=== PATIENT | female | born 1935 | race Caucasian/White ===

== ENCOUNTER → 2021-10-11 | Outpatient (CLI) | payer BC, SELFPAY ==
[2021-10-11 10:45] LABS: Mucous, Urine 0 SEEN /hpf (<or=2+); Red Blood Cells-Urine 0 SEEN /hpf (0-5)
[2021-10-11 12:33] LABS: Absolute Lymphocyte Count 1.34 X10^3/uL (0.83-4.51); Absolute Neutrophil Count 3.8 X10^3/uL (2.0-7.7); Basophil# 0.02 X10^3/uL; Basophil% 0.3 % (0-1); Eosinophil# 0.12 X10^3/uL; Hematocrit 38.1 % (37-47); Hemoglobin 12.5 g/dL (12.0-15.0); Lymphocyte # 1.34 X10^3/ul (0.83-4.51); Lymphocyte % 22.7 % (19-41); Mean Corp Hgb Conc 32.8 g/dL (32-36); Mean Corpuscular Hgb 29.3 pg (27.0-32.0); Mean Corpuscular Volume 89.2 fL (81-99); Mean Platelet Vol. 10.2 fl (6.2-12.0); Monocyte# 0.57 X10^3/uL; Monocyte% 9.6 % (0-10); NRBC Flagged by Analyzer 0 % (0-5); Neutrophil # 3.83 X10^3/uL (2.7-7.7); Neutrophil % 64.9 % (47-70); Platelet Count 252 K/mm3 (150-450); RBC Distribution Width CV 14.2 % (11.6-14.6); RBC Distribution Width SD 45.5 fl (35.1-43.9); Red Blood Count 4.27 M/mm3 (4.2-5.4); White Blood Count 5.9 K/mm3 (4.4-11.0)
[2021-10-11 12:34] LABS: Color, Urine Yellow (Yellow); Glucose, Dipstick Normal (Normal); Ketone-Dipstick Negative (Negative); Leukocyte Esterase-Dipstick 25 /ul (Negative); Nitrite-Dipstick Negative (Negative); Occult Blood-Urine Negative /ul (Negative); Protein-Dipstick Negative (Negative); Specific Gravity, Urine 1.015 (1.002-1.030); Urine Bilirubin Dipstick Negative (Negative); Urine Clarity Clear (Clear); Urine Urobilinogen Normal (Normal)
[2021-10-11 12:41] LABS: Bacteria 1+ /hpf (None Seen); Squamous Epithelial Cells - UA 5-10 SEEN /hpf (5-10)
[2021-10-11 12:42] LABS: White Blood Cells 0-5 SEEN /hpf (0-5)
[2021-10-11 13:13] LABS: AST(SGOT) 22 U/L (15-37); Alanine Aminotransfer ALT/SGPT 25 U/L (13-56); Albumin, Serum 3.8 g/dL (3.2-5.0); Alkaline Phosphatase 103 U/L (45-117); Anion Gap 5 (5-15); BUN 22 mg/dL (7-18); BUN/Creat Ratio 28.2 RATIO (10-20); CPK Total, Creatine Kinase 297 U/L (26-192); Calcium,Total 9.5 mg/dL (8.5-10.1); Chloride 106 mmol/L (98-107); Creatinine, Serum 0.78 mg/dL (0.55-1.02); EST Glomerular Filtration Rate 75 mL/min (>60); Est Glom Filt Rate - Afr Amer 90 mL/min (>60); Ferritin 110 ng/mL (8-252); Globulin 3.7 g/dL (2.2-4.2); Glucose 96 mg/dL (74-106); Magnesium 2.2 mg/dL (1.6-2.6); Potassium 4.6 mmol/L (3.5-5.1); Protein, Total 7.5 g/dL (6.4-8.2); Sodium Level 140 mmol/L (136-145); Thyroid Stim Hormone (TSH) 1.98 uIU/mL (0.358-3.74)
[2021-10-12 14:51] LABS: ANTINUCLEAR ANTIBODIES DIRECT Positive (Negative)
[2021-10-14 14:11] LABS: Anti-Centromere B Ab <0.2 AI (0.0-0.9); Anti-Chromatin <0.2 AI (0.0-0.9); Anti-Jo <0.2 AI (0.0-0.9); Anti-Scleroderma-70 AB >8.0 AI (0.0-0.9); RNP Ab <0.2 AI (0.0-0.9); SJOGREN'S Anti-SS-A test < 0.2 AI (0.0-0.9); SJOGREN'S Anti-SS-B test < 0.2 AI (0.0-0.9); Smith Ab <0.2 AI (0.0-0.9)
[2021-10-14 15:26] LABS: Anti-dsDNA Ab <1 IU/mL (0-9)
== END | disposition home or self-care (01) ==
LOC: MFPLAB 10:42
PROVIDERS: Visit Provider Family Medicine
DX: M34.9 Systemic sclerosis, unspecified (principal); R25.2 Cramp and spasm
CPT/HCPCS: 36415; 80053; 81001; 82550; 82728; 83735; 84443; 85025; 86038; 86225; 86235

== ENCOUNTER → 2021-11-04 | Outpatient (CLI) | payer MEDICARE, SELFPAY ==
--- NOTE | 2021-11-05 08:15 | PFT ---
INTRODUCTION: The patient is an 86-year-old female that presents for pulmonary function studies secondary to a diagnosis of shortness of breath. Respiratory therapy reported good patient effort. Bronchodilators were used during testing. INTERPRETATION: Forced expiration spirometry demonstrates the presence of a mild large airways obstructive ventilatory defect. There was a significant response to aerosolized bronchodilators. Spirograms are of good quality but do not plateau indicating slow emptying of the lungs. Body plethysmography was performed and reveals lung volumes to be within normal limits. Diffusing capacity by single breath CO is also within normal limits. IMPRESSION: Partially reversible mild large airways obstructive ventilatory defect with preserved lung volumes and diffusing capacity.
== END | disposition home or self-care (01) ==
PROVIDERS: PCP Family Medicine; Referring Provider Family Medicine; Visit Provider Family Medicine
DX: R06.02 Shortness of breath (principal)
CPT/HCPCS: 94060; 94726; 94729

== ENCOUNTER → 2021-11-10 | Outpatient (CLI) | payer MEDICARE, SELFPAY ==
--- NOTE | 2021-11-10 13:43 | ART_ITS ---
Reason For Study: Decreased pedal pulses Procedure A bilateral lower extremity continuous wave Doppler with analog waveform analysis,segmental pressures,and ankle brachial indexes with exercise. Left Segmental Pressures Left brachial= 136mmHg. Left posterior tibial artery = 157mmHg. Left dorsalis pedis artery = 163mmHg. The left dorsalis pedis waveforms are triphasic. The left posterior tibial artery waveforms are triphasic. Right Segmental Pressures Right brachial= 142mmHg. Right posterior tibial artery = 149mmHg. Right dorsalis pedis artery = 145mmHg. The right dorsalis pedis waveforms are triphasic. The right posterior tibial artery waveforms are triphasic. Indices The right ankle brachial index by the dorsalis pedis is 1.02. The right ankle brachial index by the posterior tibial artery is 1.05. The left ankle brachial index by the dorsalis pedis is 1.15. The left ankle brachial index by the posterior tibial artery is 1.11. VL/Lower Ext Art Exam w/ Exercise Interpretation Summary Triphasic Doppler waveforms are noted at ankle level bilaterally. Pulse-volume recordings appear satisfactory at all levels bilaterally. Resting ankle-brachial indices are norm al bilaterally. The patient ambulated on a treadmill for 5 minutes at 1.8 MPH and a 5% grade, follo wing which ankle pressures augmented bilaterally, a normal physiological response. There is no evidence of significant arterial occlusive disease in the lower ext remities bilaterally. Ordering Physician: Julian Ng Referring Physician: Julian Ng Performed By: Debbie Kelly RVT
== END | disposition home or self-care (01) ==
PROVIDERS: PCP Family Medicine; Referring Provider Family Medicine; Visit Provider Family Medicine
DX: R09.89 Other specified symptoms and signs involving the circulatory and respiratory systems (principal)
CPT/HCPCS: 93924

== ENCOUNTER → 2021-12-09 | Outpatient (CLI) | payer MEDICARE, SELFPAY ==
--- NOTE | 2021-12-09 11:25 | RAD_ITS ---
EXAM: XR LUMBOSACRAL SPINE, 2 OR 3 VIEWS CLINICAL INDICATION: PSEUDOCLAUDICATION TECHNIQUE: Frontal and lateral views of the lumbar spine and sacrum. This report was created using [employer] report ALOSKO technology. COMPARISON: None. FINDINGS: VERTEBRAE: There is minimal curvature of the lumbar spine. Preserved vertebral body height. No fracture. No spondylolisthesis. No significant facet arthropathy. DISC SPACES: There is disc space narrowing at L2-3 and L3-4 as well as L5-S1. GASTROINTESTINAL TRACT: Unremarkable as visualized. Included bowel gas pattern is non-obstructive. RAD/Lumbar Spine 2 or 3 Views IMPRESSION: Degenerative changes with mild disc space narrowing. There are no acute osseous abnormalities. Electronically Signed: Damion Meza MD at 2:56 EDT ,
== END | disposition home or self-care (01) ==
LOC: MTRAD 11:20
PROVIDERS: PCP Family Medicine; Referring Provider Family Medicine; Visit Provider Family Medicine
DX: M48.062 Spinal stenosis, lumbar region with neurogenic claudication (principal)
CPT/HCPCS: 72100

== ENCOUNTER → 2022-01-25 | Outpatient (CLI) | payer MEDICARE, SELFPAY ==
--- NOTE | 2022-01-25 16:00 | RAD_ITS ---
STUDY: LEFT ELBOW X-RAY SERIES OF 1606 HOURS ON 01/25/2022 REASON FOR EXAM: 86-year-old female with pain and swelling of the left elbow after trauma. TECHNIQUE: 3 view(s) of the elbow. COMPARISON: None. FINDINGS: There are findings of a radial head fracture. There is no evidence of other fractures or dislocations of the elbow joint. There is mild demineralization. There is a mild elbow joint effusion. Otherwise, the soft tissues are normal. RAD/Elbow min 3 Views IMPRESSION: 1. Left radial head fracture. 2. No other fractures or dislocations of the left elbow. 3. Mild demineralization. 4. Mild left elbow joint effusion. Electronically Signed: Bala Jeffrey MD at 2:00 EDT ,
== END | disposition home or self-care (01) ==
LOC: MTRAD 15:59
PROVIDERS: PCP Family Medicine; Referring Provider Family Medicine; Visit Provider Family Medicine
DX: M25.522 Pain in left elbow (principal)
CPT/HCPCS: 73080

== ENCOUNTER 2022-02-09 12:00 | Outpatient (RCR) | payer MEDICARE, SELFPAY ==
--- NOTE | 2021-12-31 15:40 | HP.PTEVAL_ITS ---
Patient's Visit Information DES DUFFY is a 86 year old F referred to Physical Therapy by Dr. Kolton Seals DPM with a diagnosis of GAIT ABNORMALITY. Date of Evaluation: 12/31/21 Physical Therapist: Mary Corrales PT, Cert MDT - Visit Plan Frequency: 2-3x /Week Duration: 4-6 Weeks Plan: GAIT AND BALANCE TRAINING ON LEVEL SURFACES AND UP AND DOWN STEPS. CORE STRENGTH AND STABILITY TRAINING WITH NEUTRAL SPINE. TIANA LE ROM, STRETCHING AND STRENGTHENING. - Subjective Work/Leisure: RETIRED. PATIENT REPORTS SHE HAS A DOG AND SHE DOES A LOT OF WALKING (UP TO 8,000 STEPS PER DAY). Present symptoms: RIGHT FOOT PAIN. SOMETIMES FEELS OFF BALANCE. DAILY LBP. TIANA LE THIGH AND LEG PAIN. PATIENT REPORTS THAT WHEN SHE IS ON AN INCLINE THE PAIN GOES UP HER LEGS FROM HER ANKLES. SOB. PATIENT REPORTS HER DOCTORS ARE AWARE OF ALL OF THESE SX'S. NEW ONSET OF MUSCLE CRAMPS AT NIGHT BUT BETTER WITH RECOMMENDATIONS FROM DR. RENDON. Present since: FOOT PAIN STARTED A COUPLE YEARS AGO AND TIANA LE AND LBP STARTED MORE RECENTLY. Pain Scale: WORST 7/10, LEAST 0/10. Currently: 3/10 LBP CENTRAL. Commenced as a result of: NO APPARENT REASON OTHER THAN CORNS ON FOOT. Worse: GETTING OUT OF BED AT NIGHT TO GO TO THE BATHROOM - NOT THE ACT OF GETTING OUT BUT ONCE I STAND UP. SOMETIMES SITTING, WALKING UP AN INCLINE. Better: NUSTEP - A MILE IN ABOUT 20 MIN ON LEVEL 4. DKTC. Disturbed sleep: NO. Previous history/Previous treatment: NO BACK SURGERY. NO DERRICK'S. NO PT FOR BACK. NO CHIRO. Coughing/sneezing/straining: NEGATIVE. Gait: PATIENT REPORTS SHE LIMPS ON HER RIGHT LE AND SWINGS HER LEG OUT TO THE SIDE WALKING. W ANTS TO LEARN HOW TO WALK BETTER. Bowel or Bladder Dysfunction: URINARY LEAKING INTERMITTENT. Accidents: HAS NOT FALLEN SINCE KNEE SURGERY OCTOBER 2020. TERRIFIED OF FALLING BECAUSE HAD MANY FALLS BEFORE KNEE SURGERY. Unexplained weight loss: NO. Imaging: RECENT LUMBAR IMAGING. NOVEMBER 2021. IMPRESSION: . Degenerative changes with mild disc space narrowing. There are no acute. osseous abnormalities. . PMH/Recent major surgery: ACL REPAIR AND MENISCUS SX OCTOBER 2020. RECENT PULMONARY TESTING RECENTLY THAT WAS NORMAL FAR PATIENT IS AWARE. HAS AN INHALER NOW FOR ASTHMA BUT PATIENT DOES NOT FEEL THIS IS HELPING HER SOB AND LEG PAIN. L FOOT SX'S. X 2 FOR SEVERE HAMMER TOES. TIANA SHLD RCR'S. R HIP SXS. SCLERADERMA. OTHER: REPORTS SURGERY HAS BEEN RECOMMENDED ON HER RIGHT FOOT BUT SHE IS RELUCTANT. PARTNER RECENTLY AND PATIENT HAS LOST WEIGHT DUE TO THIS. RECENTLY MOVED HERE IN AUGUST 2021. - Objective Sitting/Standing Posture: POOR. FH. RSH'S. REDUCED LORDOSIS. Active Correction of posture: NE. Other Observations: THIS PATIENT AMBULATES INDEP'LY INTO PT WITHOUT ANY ASSISTIVE DEVICES LIMPING ON HER RIGHT LE AND CIRCUMDUCTING HER RIGHT LE. SHE WALKS WITH DECREASED CADANCE AND DECREASED TIANA STRIDE LENGTH. Sensory deficit: TIANA LE LIGHT TOUCH SENSATION INTACT AND SYMMETRICAL. ROM deficit: TIGHT TIANA LE HS'S AND GASTROC SOLEUS COMPLEX'S. Motor deficit: TIANA LE'S GROSSLY 5/5 WITH MMT'ING EXCEPT HIPS 4/5. Dural Signs: NEGATIVE TIANA LE'S. Lumbar mvmt loss: flex - NIL. ext - MAKSIM. R SG - MOD. L SG - MOD. Core strength: POOR. Palpation: NO ACUTE LOW BACK OR HIP TENDERNESS. OTHER: PATIENT UNABLE TO SLS MORE THAN A SECOND OR TWO ON THE RIGHT LE WITHOUT UE ASSIST AND ABOUT 5 SEC ON LLE. - Balance/Special Test Scores Lower Extremity Functional Score: 54 TUG Test Time Seconds: 12.50 30 Second Chair Rise Test Seconds: 9 - Goals Goal 1:: DECREASE C/O LOW BACK AND TIANA LE PAIN Goal Time Frame: 4-6 Weeks Goal 2:: PATIENT WILL COMPLETE TUG IN < 10 SECS TO DEMONSTRATE IMPROVED GAIT STABILITY Goal Time Frame: 4-6 Weeks Goal 3:: PATIENT WILL COMPLETE 11 STANDS IN 30 SECS TO DEMONSTRATE IMPROVED FUNCTIONAL STRENGTH AND TO BE IN NORMAL RANGE FOR HER AGE Goal Time Frame: 4-6 Weeks Goal 4:: PATIENT WILL BE INDEP WITH A HEP FOR CONTINUED IMPROVEMENT ONCE FORMAL PHYSICAL THERAPY CONCLUDES. - Anticipated Interventions Patient/Client Instruction: Educate patient on: Condition, Plan of Care, Risk Factors For the Purpose of:: To improve self management Therapeutic Exercise to Include: Strength training, Balance training, Body mechanics, Postural training, Flexibilty training, Gait and locomotor training, Neuromotor development For the Purpose of:: To decrease pain, To increase ROM, To improve muscle performance and motor function, To improve ability of physical actions for home/community/work/leisure, To improve gait and locomotor functions Thank you for the opportunity to evaluate your patient. For Medicare and Medicare HMO plans, please review the plan of care and approve it. It will need to be FAXED BACK to us at [phone] for Medicare purposes. For Medicare only, by signing this I certify the plan of care. Please let me know if there are questions or concerns regarding this plan of care. Physician Signature: Date:
--- NOTE | 2022-02-14 12:59 | HP.PTDCSUM ---
It has been my pleasure to treat DES DUFFY referred by Dr. Kolton Seals DPM, with the diagnosis of GAIT ABNORMALITY for a total of 9 visit(s). Discharge Date: 02/09/22 Please see the following information for a summary of their discharge status. Subjective: Pt. reports overall doing well. She still has some pain with walking up/down hills, but is overall doing well. She is still has some soreness at her L rib region after falling. No other issues noted. Left shoulder Pain Intensity (Out of 10): 0 L rib region Pain Intensity (Out of 10): 2 % Improvement: 90 Objective/Function: 30 set to stand test: 15 reps no hands. TU.56sec no AD. 6 MWT: 1116 feet- no issues. walking on Tmill with 6% incline: Pt. fatigue, dyspnea noted. But all vitals were fine. Pt. ambulated for 4 minutes. Pt. is overall doing well. And wishes to be DC from Pt at this point in time. Goal 1:: DECREASE C/O LOW BACK AND TIANA LE PAIN Goal Progress: Goal Met Goal 2:: PATIENT WILL COMPLETE TUG IN < 10 SECS TO DEMONSTRATE IMPROVED GAIT STABILITY Goal Progress: Goal Met Goal 3:: PATIENT WILL COMPLETE 11 STANDS IN 30 SECS TO DEMONSTRATE IMPROVED FUNCTIONAL STRENGTH AND TO BE IN NORMAL RANGE FOR HER AGE Goal Progress: Goal Met Goal 4:: PATIENT WILL BE INDEP WITH A HEP FOR CONTINUED IMPROVEMENT ONCE FORMAL PHYSICAL THERAPY CONCLUDES. Goal Progress: Goal Met Plan: Pt. to be DC from PT at this point in time. Discharge Comments: pt. did well with PT . She was treated with endurance exercise and balance. I urged her to continue with a progressive walking program and nustep program at home. Pt. is oveall doing well and will be DC at this point in time. If there are questions or concerns regarding this patient's physical therapy, please feel free to call me at [phone]. Thank you for the referral of this patient. Sincerely, Gonsalo Reyes, TANIYAT Balance/Gait/Functional tests - Balance/Special Test Scores Lower Extremity Functional Score: 55 TUG Test Time Seconds: 12.50 Tug Test: <10 sec.=free mobile 30 Second Chair Rise Test Seconds: 15
== END 2022-02-09 19:00 | disposition home or self-care (01) ==
LOC: PT 12:00
PROVIDERS: PCP Family Medicine; Referring Provider Podiatrist; Visit Provider Podiatrist
DX: R26.9 Unspecified abnormalities of gait and mobility (principal)
CPT/HCPCS: 97110; 97162; 97164

== ENCOUNTER → 2022-06-02 | Outpatient (CLI) | payer MEDICARE, SELFPAY ==
--- NOTE | 2022-06-02 11:05 | BD_ITS ---
STUDY: DUAL ENERGY X-RAY ABSORPTIOMETRY / DXA REASON FOR EXAM: Female, 87 years old. M85.89 TECHNIQUE: Bone Mineral Density (BMD) measurements of lumbar spine and left hip were obtained. COMPARISON: None. FINDINGS: Lumbar Spine (L1-L4): g/cm2 (0.778) / T-score (-2.4) / Z-score (0.4) Findings are suggestive of osteopenia with a high fracture risk. Left Femur Total: g/cm2 (0.571) / T-score (-3.0) / Z-score (-0.7) Left Femoral Neck: g/cm2 (0.526) / T-score (-2.9) / Z-score (-0.4) BD/Dexa Bone Density Study IMPRESSION: The patient is considered osteoporotic as outlined below according to World Miles Organization (WHO) criteria with a high fracture risk. Reference Information: The T-score is the number of standard deviations above or below the standard which is normal for young adults at their peak bone mineral density. The World Health Organization (WHO) interprets the T-scores as follows: Above -1 Normal bone density Between -1 and -2.5 Osteopenia Equal to / or below -2.5 Osteoporosis As a practical clinical guideline, osteopenia may be graded as follows: Mild -1 through -1.5 Moderate -1.6 through -2.0 Severe -2.1 through -2.4 The Z-score is the number of standard deviations above or below age-matched controls. A Z-score of less than -1.5 would be considered abnormal. References: 1. NIH Osteoporosis and Related Bone Diseases www osteo.org 2. International Society for Clinical Densitometry www iscd.org 3. National Osteoporosis Foundation www nof.org Electronically Signed: Rah Cisse MD at 14:34 EST ,
== END | disposition home or self-care (01) ==
LOC: OPBD 10:58
PROVIDERS: PCP Family Medicine; Visit Provider Family Medicine
DX: M81.0 Age-related osteoporosis without current pathological fracture (principal); M85.80 Other specified disorders of bone density and structure, unspecified site
CPT/HCPCS: 77080

== ENCOUNTER → 2022-06-07 | Outpatient (CLI) | payer MEDICARE, SELFPAY ==
[2022-06-07 16:11] LABS: ALB/GLOB Ratio 1.1 RATIO (0.9-2.4); AST(SGOT) 19 U/L (15-37); Alanine Aminotransfer ALT/SGPT 24 U/L (13-56); Albumin, Serum 3.8 g/dL (3.2-5.0); Alkaline Phosphatase 69 U/L (45-117); Anion Gap 8 (5-15); BUN 25 mg/dL (7-18); BUN/Creat Ratio 33.5 RATIO (10-20); Calcium,Total 9.9 mg/dL (8.5-10.1); Chloride 104 mmol/L (98-107); Creatinine, Serum 0.75 mg/dL (0.55-1.02); EST Glomerular Filtration Rate 78 mL/min (>60); Est Glom Filt Rate - Afr Amer 95 mL/min (>60); Globulin 3.4 g/dL (2.2-4.2); Glucose 88 mg/dL (74-106); Potassium 4.7 mmol/L (3.5-5.1); Protein, Total 7.2 g/dL (6.4-8.2); Sodium Level 142 mmol/L (136-145)
[2022-06-07 16:50] LABS: Vitamin D,25 Hydroxy 37.8 ng/mL
== END | disposition home or self-care (01) ==
PROVIDERS: PCP Family Medicine; Referring Provider Family Medicine; Visit Provider Family Medicine
DX: M81.0 Age-related osteoporosis without current pathological fracture (principal)
CPT/HCPCS: 36415; 80053; 82306

== ENCOUNTER → 2022-10-07 | Outpatient (CLI) | payer MEDICARE, SELFPAY | END | disposition home or self-care (01) | LOC: LABSPEC 12:24 | PROVIDERS: PCP Family Medicine; Referring Provider Family Medicine; Visit Provider Family Medicine | DX: N39.0 Urinary tract infection, site not specified (principal) | CPT/HCPCS: 87077; 87086; 87088; 87186 ==

== ENCOUNTER → 2022-11-15 | Outpatient (CLI) | payer MEDICARE, SELFPAY ==
[2022-11-15 12:48] LABS: Absolute Lymphocyte Count 1.76 X10^3/uL (0.83-4.51); Absolute Neutrophil Count 3.9 X10^3/uL (2.0-7.7); Basophil# 0.03 X10^3/uL; Basophil% 0.5 % (0-1); Eosinophil# 0.13 X10^3/uL; Hematocrit 40.1 % (37-47); Hemoglobin 12.6 g/dL (12.0-15.0); Lymphocyte # 1.76 X10^3/ul (0.83-4.51); Mean Corp Hgb Conc 31.4 g/dL (32-36); Mean Corpuscular Hgb 28.6 pg (27.0-32.0); Mean Corpuscular Volume 91.1 fL (81-99); Mean Platelet Vol. 10.4 fl (6.2-12.0); Monocyte# 0.69 X10^3/uL; Monocyte% 10.6 % (0-10); NRBC Flagged by Analyzer 0 % (0-5); Neutrophil % 59.7 % (47-70); Platelet Count 260 K/mm3 (150-450); RBC Distribution Width CV 13.9 % (11.6-14.6); RBC Distribution Width SD 46.4 fl (35.1-43.9); White Blood Count 6.5 K/mm3 (4.4-11.0)
[2022-11-15 13:39] LABS: AST(SGOT) 25 U/L (15-37); Alanine Aminotransfer ALT/SGPT 25 U/L (13-56); Albumin, Serum 3.8 g/dL (3.2-5.0); Alkaline Phosphatase 50 U/L (45-117); Anion Gap 6 (5-15); BUN 22 mg/dL (7-18); BUN/Creat Ratio 24.7 RATIO (10-20); Calcium,Total 9.2 mg/dL (8.5-10.1); Chloride 107 mmol/L (98-107); Creatinine, Serum 0.89 mg/dL (0.55-1.02); EST Glomerular Filtration Rate 64 mL/min (>60); Est Glom Filt Rate - Afr Amer 77 mL/min (>60); Globulin 3.7 g/dL (2.2-4.2); Glucose 94 mg/dL (74-106); Potassium 4.5 mmol/L (3.5-5.1); Protein, Total 7.5 g/dL (6.4-8.2); Sodium Level 138 mmol/L (136-145); Thyroid Stim Hormone (TSH) 1.77 uIU/mL (0.358-3.74)
[2022-11-15 13:45] LABS: Vitamin B12 624 pg/mL (211-911); Vitamin D,25 Hydroxy 47.3 ng/mL
== END | disposition home or self-care (01) ==
LOC: MFPLAB 11:13
PROVIDERS: PCP Family Medicine; Visit Provider Family Medicine
DX: M81.0 Age-related osteoporosis without current pathological fracture (principal); R53.83 Other fatigue
CPT/HCPCS: 36415; 80053; 82306; 82607; 84439; 84443; 85025

== ENCOUNTER → 2022-12-14 | Outpatient (CLI) | payer MEDICARE, SELFPAY ==
--- NOTE | 2022-12-14 10:00 | RAD_ITS ---
STUDY: X-RAY - ESOPHAGUS (BARIUM SWALLOW) WITH FLUOROSCOPY REASON FOR EXAM: Female, 87 years old. DYSPHAGIA TECHNIQUE: 18 view(s) of the esophagus were obtained following swallowing of barium. FLUOROSCOPY TIME (if supplied): (31 seconds) minutes/seconds COMPARISON: None. FINDINGS: There is no demonstrated esophageal foreign body. There is no demonstrated stricture or mucosal abnormality. Normal gastroesophageal junction, without a demonstrated hiatal hernia. The patient ingested a 12 mm tablet of barium without any difficulty. There is atherosclerotic calcification of the aortic arch with tortuosity of the descending aorta. Normal visualized pulmonary parenchyma. There are diffuse degenerative changes of the visualized thoracic spine. RAD/Esophagus Dual Contrast IMPRESSION: Normal plain film x-ray examination (barium swallow) of the esophagus. Electronically Signed: Rah Cisse MD at 15:02 EDT ,
== END | disposition home or self-care (01) ==
LOC: RAD 09:50
PROVIDERS: PCP Family Medicine; Referring Provider Internal Medicine Gastroenterology; Visit Provider Internal Medicine Gastroenterology
DX: R13.0 Aphagia (principal); M34.9 Systemic sclerosis, unspecified
CPT/HCPCS: 74221

== ENCOUNTER → 2022-12-16 | Outpatient (CLI) | payer MEDICARE, SELFPAY | END | disposition home or self-care (01) | LOC: LABSPEC 12:17 | PROVIDERS: PCP Family Medicine; Referring Provider Family Medicine; Visit Provider Family Medicine | DX: N39.0 Urinary tract infection, site not specified (principal) | CPT/HCPCS: 87077; 87086; 87088; 87186 ==

== ENCOUNTER → 2023-01-06 | Outpatient (CLI) | payer MEDICARE, SELFPAY ==
--- NOTE | 2023-01-06 12:50 | RAD_ITS ---
STUDY: X-RAY CHEST REASON FOR EXAM: Female, 87 years old. SOB TECHNIQUE: PA and lateral views of the chest. COMPARISON: None. FINDINGS: Lungs are hyperexpanded, with chronic interstitial changes, but no superimposed acute pulmonary process Normal size heart. Normal mediastinum and andie. Normal visualized pulmonary arteries. There is atherosclerotic calcification of the aortic arch with tortuosity. There are diffuse degenerative changes of the visualized thoracic spine. There is degenerative osteoarthritis of the bilateral shoulders. There is no demonstrated abnormality of the visualized soft tissue structures of the upper abdomen. RAD/Chest PA and Lateral IMPRESSION: Hyperexpanded lungs with chronic interstitial changes, no superimposed acute pulmonary process Electronically Signed: Bo Waite MD at 14:27 EDT ,
[2023-01-06 15:18] LABS: Erythrocyte Sedimentation Rate 13 mm/hr (0-30)
[2023-01-06 15:50] LABS: CRP < 2.90 mg/L (0.0-3.0)
[2023-01-09 13:07] LABS: Anti-Scleroderma-70 AB >8.0 AI (0.0-0.9)
== END | disposition home or self-care (01) ==
LOC: MTLAB 12:46
PROVIDERS: PCP Family Medicine; Referring Provider Internal Medicine Pulmonary Disease; Visit Provider Internal Medicine Pulmonary Disease
DX: R06.02 Shortness of breath (principal)
CPT/HCPCS: 36415; 71046; 85652; 86140; 86235

== ENCOUNTER → 2023-02-16 | Outpatient (CLI) | payer MEDICARE, SELFPAY ==
--- NOTE | 2023-02-16 09:55 | ART_ITS ---
Reason For Study: LEG PAIN Procedure A bilateral lower extremity continuous wave Doppler with analog waveform analysis,segmental pressures,and ankle brachial indexes without exercise. Left Segmental Pressures Left brachial= 109mmHg. Left posterior tibial artery = 154mmHg. Left dorsalis pedis artery = 139mmHg. Left digit = 104 mmHg. The left posterior tibial artery waveforms are triphasic. The left dorsalis pedis waveforms are triphasic. Right Segmental Pressures Right brachial= 113mmHg. Right posterior tibial artery = 140mmHg. Right dorsalis pedis artery = 138mmHg. Right digit = 75 mmHg. The right posterior tibial artery waveforms are triphasic. The right dorsalis pedis waveforms are triphasic. Indices The right ankle brachial index by the posterior tibial artery is 1.24. The right ankle brachial index by the dorsalis pedis is 1.22. The right digital-brachial index is 0.66. The left ankle brachial index by the posterior tibial artery is 1.36. The left ankle brachial index by the dorsalis pedis is 1.23. The left digital-brachial index is 0.92. VL/Lower Ext Art Exam w/o Exercis Interpretation Summary Triphasic Doppler waveforms are noted at ankle level bilaterally. Pulse-volume recordings appear diminished at ankle level on the left, and at digital level bilaterally. Restin g ankle-brachial indices are normal bilaterally. The right digital-brachial index is mildly dimi nished. The left digital-brachial index is normal. Arterial flow appears normal at ankle level bilaterally, and at digital level o n the left. There is evidence of mild arterial occlusive disease at digital level on the right. Ordering Physician: Aaron Garcia V Referring Physician: Julian Ng Performed By: Adan Bill RVT
== END | disposition home or self-care (01) ==
LOC: CT 09:51
PROVIDERS: PCP Family Medicine; Referring Provider Internal Medicine Pulmonary Disease; Visit Provider Internal Medicine Pulmonary Disease
DX: R06.02 Shortness of breath (principal); M34.9 Systemic sclerosis, unspecified; I70.213 Atherosclerosis of native arteries of extremities with intermittent claudication, bilateral legs; M79.669 Pain in unspecified lower leg
CPT/HCPCS: 93923

== ENCOUNTER → 2023-02-20 | Outpatient (CLI) | payer MEDICARE, SELFPAY ==
--- NOTE | 2023-02-20 13:57 | ECHOD_ITS ---
Reason For Study: SOB Procedure This was a 2D Doppler, Color Flow transthoracic echocardiogram. Exam performed in department. Left Ventricle Normal LV size. Left ventricular systolic function is normal. The estimated ejection fraction is 65 %. Stage 2 diastolic dysfunction. No regional wall motion abnormalities noted. Right Ventricle Normal RV size. Normal systolic function. Atria Normal left atrium. Normal right atrium. Mitral Valve Normal mitral valve. Tricuspid Valve Normal tricuspid valve. Mild tricuspid valve insufficiency. Pulmonary artery systolic pressure is 44 mmHg. Aortic Valve Normal aortic valve. Trisinus/trileaflet aortic valve. Pulmonic Valve Normal pulmonic valve. Great Vessels Normal aortic root. The pulmonary artery is normal size. Normal inferior vena cava. Pericardium/Pleural No pericardial effusion. MMode/2D Measurements & Calculations LVIDd: 4.1 cm IVSd: 0.88 cm Ao root diam: 2.7 cm LVIDs: 2.8 cm LVPWd: 0.96 cm FS: 32.5 % LAV(MOD-sp4): 23.6 ml LVAd ap4: 22.6 cm2 SV(MOD-sp4): 47.6 ml LVLd ap4: 6.7 cm EDV(MOD-sp4): 64.1 ml EDV(sp4-el): 65.1 ml LVAs ap4: 10.2 cm2 LVLs ap4: 5.3 cm ESV(MOD-sp4): 16.5 ml ESV(sp4-el): 16.7 ml EF(MOD-sp4): 74.3 % EF(sp4-el): 74.4 % SV(sp4-el): 48.4 ml LA A4 area: 10.7 cm2 LA dimension(2D): 3.4 cm RA A4 area: 16.8 cm2 TAPSE: 2.3 cm Time Measurements MV dec time: 0.18 sec Doppler Measurements & Calculations MV E max rajinder: 67.7 cm/sec Lat Peak E' Rajinder: 11.1 cm/sec Med Peak E' Rajinder: 8.2 cm/sec MV A max rajinder: 63.6 cm/sec E/E' lat: 6.1 E/E' med: 8.3 MV E/A: 1.1 MV V2 max: 95.5 cm/sec Ao V2 max: 121.9 cm/sec MV max P.7 mmHg MV dec slope: 376.9 cm/sec2 Ao max P.0 mmHg MV V2 mean: 63.7 cm/sec Ao V2 mean: 91.1 cm/sec MV mean P.8 mmHg Ao mean P.7 mmHg MV V2 VTI: 32.1 cm Ao V2 VTI: 32.7 cm AV (velocity ratio): 0.77 LV V1 max: 99.3 cm/sec PA V2 max: 88.6 cm/sec TR max rajinder: 308.8 cm/sec LV V1 max P.9 mmHg PA V2 mean: 65.1 cm/sec TR max P.2 mmHg LV V1 mean P.3 mmHg LV V1 mean: 71.2 cm/sec LV V1 VTI: 25.3 cm ECHO/Echo Complete Interpretation Summary Normal LV size. Left ventricular systolic function is normal. The estimated ejection fraction is 65 %. Pulmonary artery systolic pressure is 44 mmHg. Stage 2 diastolic dysfunction. Ordering Physician: Julian Ng Referring Physician: Aaron Garcia V Performed By: Saniya Yeboah RCS
--- NOTE | 2023-02-20 14:39 | CT_ITS ---
STUDY: CT CHEST WITHOUT CONTRAST REASON FOR EXAM: Female, 88 years old. SOB RADIATION DOSAGE (If Supplied By Facility): CTDIvol = ( 6.61 ) mGy, DLP = ( 229.54 ) mGycm TECHNIQUE: Transaxial imaging was performed without the administration of intravenous contrast material. Individualized dose optimization techniques were used for this CT. COMPARISON: No relevant priors. FINDINGS: CHEST Fibrocalcific scarring at the lung apices worse on the right side. Mild emphysematous changes. Calcified granulomas in the posterior aspect of the right middle lobe. Calcified granuloma in the left lower lobe. Mild degree of scarring at the lung bases slightly more prominent on the left side. There is no demonstrated pleural abnormality. There are calcifications of the coronary arteries. There are multiple small lymph nodes within the mediastinum, which are normal in size and morphology most compatible with reactive lymph hyperplasia. Calcified bilateral hilar lymph nodes. Normal unenhanced pulmonary arteries. There is atherosclerotic calcification of the aortic arch with tortuosity and elongation of the aortic arch and descending thoracic aorta. There are multi-level degenerative changes of the thoracic spine. Calcified splenic granulomas. CT/Chest without Contrast IMPRESSION: Several calcific scarring in the lung apices worse on the right side. Mild scarring at the lung bases. Mild degree of emphysematous changes. Electronically Signed: Rah Cisse MD at 8:39 EDT ,
== END | disposition home or self-care (01) ==
PROVIDERS: PCP Family Medicine; Referring Provider Internal Medicine Pulmonary Disease; Visit Provider Internal Medicine Pulmonary Disease
DX: R06.02 Shortness of breath (principal)
CPT/HCPCS: 71250; 93306

== ENCOUNTER → 2023-04-11 | Outpatient (CLI) | payer MEDICARE, SELFPAY ==
[2023-04-11 10:44] LABS: Anion Gap 6 (5-15); BUN 24 mg/dL (7-18); BUN/Creat Ratio 29.3 RATIO (10-20); Calcium,Total 9.3 mg/dL (8.5-10.1); Chloride 104 mmol/L (98-107); Creatinine, Serum 0.82 mg/dL (0.55-1.02); EST Glomerular Filtration Rate 70 mL/min (>60); Est Glom Filt Rate - Afr Amer 85 mL/min (>60); Glucose 82 mg/dL (74-106); Potassium 3.7 mmol/L (3.5-5.1); Sodium Level 140 mmol/L (136-145)
== END | disposition home or self-care (01) ==
LOC: MFPLAB 08:59
PROVIDERS: PCP Family Medicine; Visit Provider Family Medicine
DX: I27.20 Pulmonary hypertension, unspecified (principal)
CPT/HCPCS: 36415; 80048

== ENCOUNTER → 2023-06-02 | Outpatient (CLI) | payer MEDICARE, SELFPAY ==
--- OUTSIDE RECORDS SUMMARY | 2023-06-02 12:18 | XMS RPT_ITS | CCD ---
Author Name Unknown Address [address] [place] [address] Organization [facility] Care Team Providers Care Programming Engineer Name Role Phone ANTHONY DECKER Attending Unavailable ANTHONY DECKER Admitting Unavailable Allergies Allergy Classification Reported Allergen(s) Allergy Type Date of Onset Reaction(s) Facility (1 source) Chlorpheniramine / Pseudoephedrine; Translations: [ALLER-CHLOR DECONGESTANT] Drug Allergy 05-25-19 [facility] (1 source) Sulfonamides (Antibiotic); Translations: [SULFA (SULFONAMIDE ANTIBIOTICS)] Propensity to adverse reactions to drug (disorder) 05-25-19 [facility] Repository Problems Problem Classification Problem Date Documented Da te Episodic/Chronic Pulmonary heart disease (1 source) Pulmonary hypertension, unspecified; Translations: [Pulmonary HTN (HCC)] Onset: 05-25-2023 Chronic Results Test Name Value Interpretation Reference Range Facil ity Encounters Encounter Date Encounter Type Care Provider Facility Start: 05-25-2023 End: 05-25-2023 ambulatory ANTHONY DECKER Facility:[facility] Payers Date Payer Category Payer Medicare [id number] Summary Purpose Family History No Family History Records Found Advance Directives No Advanced Directives Records Found Additional Source Comments INFORMATION SOURCE (unrecogn ized section and content) FOR RECORDS PERTAINING TO PATIENTS WHO ARE OR HAVE BEEN ENROLLED IN A CHEMICAL DEPENDENCY/SUBSTANCEABUSE PROGRAM, SOME INFORMATION MAY BE OMITTED. This clinical summary was aggregated from multiple sources. Caution should be exercised in using it in the provision of clinical care. This summary normalizes information from multiple sources, and as a consequence, information in this document may materially change the coding, format and clinical context of patient data. In addition, data may be omitted in some cases. CLINICAL DECISIONS SHOULD BE BASED ON THE PRIMARY CLINICAL RECORDS. [employer] provides no warranty or guarantee of the accuracy or completeness of information in this document.
[2023-06-02 15:36] LABS: Absolute Lymphocyte Count 1.84 X10^3/uL (0.83-4.51); Basophil# 0.03 X10^3/uL; Basophil% 0.5 % (0-1); Eosinophil# 0.08 X10^3/uL; Eosinophils% 1.2 % (0-5); Hematocrit 40.9 % (37-47); Hemoglobin 12.6 g/dL (12.0-15.0); Lymphocyte # 1.84 X10^3/ul (0.83-4.51); Lymphocyte % 27.7 % (19-41); Mean Corp Hgb Conc 30.8 g/dL (32-36); Mean Corpuscular Hgb 28.6 pg (27.0-32.0); Mean Corpuscular Volume 92.7 fL (81-99); Monocyte# 0.68 X10^3/uL; Monocyte% 10.2 % (0-10); NRBC Flagged by Analyzer 0 % (0-5); Neutrophil # 3.99 X10^3/uL (2.7-7.7); Neutrophil % 60.1 % (47-70); Platelet Count 304 K/mm3 (150-450); RBC Distribution Width SD 51.1 fl (35.1-43.9); Red Blood Count 4.41 M/mm3 (4.2-5.4); White Blood Count 6.6 K/mm3 (4.4-11.0)
[2023-06-02 16:00] LABS: Vitamin D,25 Hydroxy 47.5 ng/mL
[2023-06-02 16:22] LABS: ALB/GLOB Ratio 1.1 RATIO (0.9-2.4); AST(SGOT) 26 U/L (15-37); Alanine Aminotransfer ALT/SGPT 25 U/L (13-56); Albumin, Serum 4.2 g/dL (3.2-5.0); Alkaline Phosphatase 57 U/L (45-117); Anion Gap 7 (5-15); BUN 22 mg/dL (7-18); BUN/Creat Ratio 26.1 RATIO (10-20); Chloride 102 mmol/L (98-107); Creatinine, Serum 0.84 mg/dL (0.55-1.02); EST Glomerular Filtration Rate 68 mL/min (>60); Est Glom Filt Rate - Afr Amer 82 mL/min (>60); Globulin 3.7 g/dL (2.2-4.2); Glucose 88 mg/dL (74-106); Potassium 4.3 mmol/L (3.5-5.1); Protein, Total 7.9 g/dL (6.4-8.2); Sodium Level 138 mmol/L (136-145)
== END | disposition home or self-care (01) ==
LOC: MFPLAB 11:38
PROVIDERS: PCP Family Medicine; Visit Provider Family Medicine
DX: M81.0 Age-related osteoporosis without current pathological fracture (principal); R06.02 Shortness of breath
CPT/HCPCS: 36415; 80053; 82306; 85025

== ENCOUNTER → 2023-09-20 | Outpatient (CLI) | payer MEDICARE, SELFPAY ==
--- NOTE | 2023-09-20 13:50 | RAD_ITS ---
STUDY: X-RAY - ABDOMEN/PELVIS REASON FOR EXAM: Female, 88 years old. Fecal incontinence. TECHNIQUE: Two AP supine views of the abdomen and pelvis. COMPARISON: None. FINDINGS: Mild hyperinflation of the lungs. Normal bowel gas pattern with air seen to the rectosigmoid and rectum. Moderate amount of feces in the colon. The visualized liver, spleen and kidneys are grossly normal in size and morphology. Phleboliths. 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 RAD/Abdomen Single View IMPRESSION: No acute abnormality of the lower chest, abdomen or pelvis. Electronically Signed: Amanuel Tam MD at 15:00 EDT ,
== END | disposition home or self-care (01) ==
PROVIDERS: PCP Family Medicine; Referring Provider Family Medicine; Visit Provider Family Medicine
DX: R15.9 Full incontinence of feces (principal)
CPT/HCPCS: 74018

== ENCOUNTER → 2024-01-26 | Outpatient (CLI) | payer MEDICARE, SELFPAY ==
--- NOTE | 2024-01-26 08:52 | US_ITS ---
STUDY: ABDOMINAL ULTRASOUND - RIGHT UPPER QUADRANT REASON FOR VISIT: Female, 88 years old Right upper quadrant pain TECHNIQUE: Ultrasound evaluation of the right upper quadrant was performed with real-time and static caruso-scale imaging. TECHNICAL QUALITY: Adequate. COMPARISON: None. FINDINGS: Liver: The liver measures 14.2 cm. There is normal echogenicity of the liver. The bile ducts are within normal limits. There is hepatic color flow. The direction of portal flow is hepatopetal. There is no demonstrated mass lesion. Gallbladder: Normal distended gallbladder. The gallbladder wall measures 2.4 mm. There is a negative sonographic Saunders''s sign. There is no pericholecystic fluid. There are no gallstones. Common Bile Duct (C.B.D.): The common bile duct measures 3.6 mm. Pancreas: Normal size of the head, body and tail of the pancreas. There is normal echogenicity of the pancreas. There is no demonstrated pancreatic mass or cyst. Right Kidney: Normal size of the right kidney. The right kidney measures 9.9 cm x 4.2 cm x 3.6 cm. Normal renal cortex. The right cortex measures 1.0 cm. There is no demonstrated renal mass or cyst. There is no right hydronephrosis. US/Abdomen Limited IMPRESSION: Normal right upper quadrant ultrasound examination. Electronically Signed: Rah Cisse MD at 12:29 EDT ,
== END | disposition home or self-care (01) ==
LOC: US 08:52
PROVIDERS: PCP Family Medicine; Referring Provider Family Medicine; Visit Provider Family Medicine
DX: R10.11 Right upper quadrant pain (principal)
CPT/HCPCS: 76705

== ENCOUNTER → 2024-03-19 | Outpatient (CLI) | payer MEDICARE, SELFPAY ==
--- NOTE | 2024-03-19 13:54 | RAD_ITS ---
INDICATION: pain and crepitus -- order put in as bilateral EXAMINATION/TECHNIQUE: X-RAY - RIGHT XR Knee 3 Views 3 VIEWS COMPARISON: No relevant prior comparison study available FINDINGS: SOFT TISSUES: No soft tissue swelling or gas. No radiopaque foreign body. BONES/JOINTS: Lucent line in the lateral femoral condyle likely due to old fracture.. No evidence of acute fracture. Mild narrowing of the medial joint compartment. No sclerotic or destructive changes observed. RAD/Knee 3 Views IMPRESSION: Probable old fracture of the distal femur. Mild degenerative arthrosis. Electronically Signed: Niko Penn MD at 13:49 EDT ,
--- NOTE | 2024-03-19 13:58 | RAD_ITS ---
INDICATION: pain EXAMINATION/TECHNIQUE: X-RAY - LEFT XR Knee 3 Views 6 VIEWS COMPARISON: No relevant prior comparison study available FINDINGS: SOFT TISSUES: No soft tissue swelling or gas. No radiopaque foreign body. BONES/JOINTS: No evidence of acute fracture or dislocation. Mild demineralization of the osseous structures. Normal alignment. Preservation of the joint space.. No sclerotic or destructive changes observed. RAD/Knee 3 Views IMPRESSION: No demonstrated acute changes. Electronically Signed: Niko Penn MD at 13:50 EDT ,
== END | disposition home or self-care (01) ==
LOC: MTRAD 13:54
PROVIDERS: PCP Family Medicine; Referring Provider Family Medicine; Visit Provider Family Medicine
DX: M23.8X1 Other internal derangements of right knee (principal)
CPT/HCPCS: 73562

== ENCOUNTER → 2024-04-08 | Outpatient (CLI) | payer MEDICARE, SELFPAY | END | disposition home or self-care (01) | LOC: LABSPEC 10:29 | PROVIDERS: PCP Family Medicine; Referring Provider Nurse Practitioner Family; Visit Provider Nurse Practitioner Family | DX: N39.0 Urinary tract infection, site not specified (principal) | CPT/HCPCS: 87077; 87086; 87088; 87186 ==

== ENCOUNTER 2024-06-17 17:16 | Emergency (ER) | payer MEDICARE, SELFPAY ==
[2024-06-17 17:17] VITALS: BP 130/74; PULSE 65; RESP 15; TEMP 35.8; O2SAT 97; BMI 28.3
[2024-06-17 19:45] VITALS: BP 155/71; PULSE 59; RESP 18; O2SAT 98
--- NOTE | 2024-06-17 20:47 | EX.ED.DYSGE1 ---
HPI History of Present Illness Chief Complaint: Edema Informant: patient Narrative Narrative: Sent from PCP office for 3 days of worsening leg swelling. Pulmonary hypertension history on Lasix 40 mg daily for last 6 months. She reports never had leg swelling. Been noting some cramping in her left calf. No history of blood clots. Chronic dyspnea with her pulmonary hypertension. Denies orthopnea. Denies cough. Denies fevers. She has been taking her Lasix. She went to her PCP office today reported saw the nurse who consulted with nurse practitioner states that the legs is not working therefore go to the ED. She does report some foamy urine over last 3 days however no decreased urine output. No dysuria. Prior similar symptoms: No PFSH PFSH Medical History Left knee pain Fracture of radial head, left, closed Home Medications ?Medication ?Instructions ?Recorded ?Last Taken ?Type cholecalciferol (vitamin D3) 10 10 mcg PO DAILY 02/01/22 Unknown History mcg (400 unit) capsule multivitamin (Daily Multi-Vitamin 1 tab PO DAILY 02/01/22 Unknown History tablet) prazosin 1 mg capsule 1 mg PO QHS 02/01/22 Unknown History conjugated estrogens 0.625 mg/gram vaginal 04/06/24 Unknown History vaginal cream (Premarin) cranberry 500 mg capsule 500 mg PO BID 04/06/24 Unknown History fluticasone propionate 50 spray intranasal 04/06/24 Unknown History mcg/actuation nasal spray,suspension furosemide 40 mg tablet 40 mg PO QDAY 04/06/24 Unknown History sildenafil (pulm.hypertension) 20 40 mg PO TID 04/06/24 Unknown History mg tablet Allergy/AdvReac Type Severity Reaction Status Date / Time Sulfa (Sulfonamide Allergy Mild Hives Verified 06/17/24 17:17 Antibiotics) decongestants Allergy Mild Hives Uncoded 04/06/24 10:41 Social History Smoking Status: Never smoker ROS ROS ED Constitutional Constitutional ED: Denies chills, fever(s) or sweats ENT ENT ED: Denies sore throat Cardiovascular Cardiovascular: Reports leg edema; Denies chest pain, palpitations or racing heartbeat Respiratory/Chest Respiratory/Chest: Reports dyspnea; Denies cough or dyspnea on exertion Gastrointestinal Gastrointestinal: Denies abdominal pain, diarrhea, nausea or vomiting Genitourinary Genitourinary ED: Denies dysuria, hematuria or urinary frequency Musculoskeletal Musculoskeletal: Denies back pain, extremity pain or neck pain Integumentary Denies rash or wounds Neurologic Neurologic: Denies headache(s), paresthesias or weakness EXAM Physical Exam Const Vital Signs: 06/17/24 17:17 06/17/24 19:45 06/17/24 19:45 Temperature 96.4 F L Temperature Source Temporal Pulse Rate 65 59 L Respiratory Rate 15 18 Respiratory Effort Normal Non-Labored Respiratory Pattern Normal Blood Pressure 130/74 H 155/71 H Blood Pressure Mean 92 99 Pulse Ox 97 98 Oxygen Delivery Method Room Air Room Air 06/17/24 21:03 06/17/24 22:51 Temperature 98.0 F Temperature Source Pulse Rate 65 65 Respiratory Rate 18 18 Respiratory Effort Respiratory Pattern Blood Pressure 162/71 H 128/64 H Blood Pressure Mean 101 85 Pulse Ox 95 100 Oxygen Delivery Method Room Air Positive well nourished and well developed General Appearance ED: well developed and NAD HEENT Reports moist mucous membranes normocephalic and atraumatic Eyes General Eye ED: Yes normal appearance of both eyes Neck full ROM Chest Wall Chest: Negative for tenderness Resp normal respiratory effort and normal air movement Effort and Inspection: symmetric chest movement; Negative for respiratory distress Cardio regular rate, regular rhythm and no murmurs Peripheral Pulses: pulses 2+ throughout GI normal to inspection, nondistended, normoactive bowel sounds and non-tender Palpation: Negative for guarding or rebound tenderness present Extremity normal to inspection Extremity Narrative: 1+ bilateral lower extremity swelling is mild Pain. Soft compartments. General Extremety ED: Yes edema and tenderness General Extremity: edema Neuro oriented x3 and no sensory deficits noted Sensorium / Orientation: awake and alert Skin no rashes or lesions noted and no wounds MDM MDM MDM Narrative Medical decision making narrative: Interventions / MDM: Differential diagnosis: Peripheral edema Diagnosis considered but do not suspect: DVT however ultrasound negative. BRENNA however labs normal. My EKG interpretation: N/A Imaging independently reviewed and interpreted by myself: Bilateral lower extremity ultrasound: Discussion with hvac controls technician negative for DVT. Two-view chest x-ray: No acute process. External documents reviewed: N/A Test considered but not ordered:N/A ED course: Vital stable 98% room air. Chronic dyspnea with her pulmonary hypertension. New leg swelling. There is pain in the calf will obtain ultrasound will check labs including kidney function. Will check BNP. Chest x-ray also ordered. Chest x-ray negative labs are all stable ultrasound negative for DVT. Not hypoxic no distress. Discussed with patient increase her Lasix twice a day for the next 5 days. She has appointment with her PCP in 4 days she will keep this appointment for evaluation. No hypoxia, no distress. No concerns requiring hospitalization at this time. Re-evaluation: stable Disposition discussed with patient/family/significant other: Patient Case discussed with consulting clinician: N/A This note was generated with Teamly dictation software. It may contain incorrect words, spelling, and punctuation that were not noted in checking the note before signing. Lab Data Attestation: I reviewed the patient's lab results. Labs: Laboratory Results - last 24 hr 06/17/24 21:06 WBC 11.2 H RBC 4.38 Hgb 12.3 Hct 38.5 MCV 87.9 MCH 28.1 MCHC 31.9 L RDW Std Deviation 52.5 H RDW Coeff of Jessy 16.5 H Plt Count 385 MPV 9.7 Immature Gran % (Auto) 0.400 Neut % (Auto) 66.6 Lymph % (Auto) 19.6 [place] % (Auto) 10.0 Eos % (Auto) 3.0 Baso % (Auto) 0.4 Absolute Neuts (auto) 7.5 Absolute Lymphs (auto) 2.20 Nucleated RBC % 0 Sodium 140 Potassium 4.0 Chloride 105 Carbon Dioxide 28.0 Anion Gap 6 BUN 20 H Creatinine 0.70 Estim Creat Clear Calc 50.87 Est GFR (MDRD) Af Amer 102 Est GFR (MDRD) Non-Af 85 BUN/Creatinine Ratio 28.7 H Glucose 105 Calcium 9.4 B-Natriuretic Peptide 135.2 H Urine Color Yellow Urine Clarity Clear Urine pH 7.0 Ur Specific [place] 1.010 Urine Protein 500 H Urine Glucose (UA) Normal Urine Ketones Negative Urine Occult Blood 25 H Urine Nitrite Negative Urine Bilirubin Negative Urine Urobilinogen Normal Ur Leukocyte Esterase Negative Urine RBC 0-5 SEEN Urine WBC 0 SEEN Ur Squamous Epith Cells 0-5 SEEN Urine Bacteria 0 SEEN Urine Mucus 0 SEEN Radiography Diagnostic Testing: Clinical Impression(s) from Imaging Studies Venous Duplex 06/17/24 20:49 IMPRESSION: No sonographic evidence of deep venous thrombosis. Electronically Signed: Lamonte Mays DO at 22:42 EST , Chest X-Ray 06/17/24 21:10 IMPRESSION: No radiographic evidence of acute cardiopulmonary disease. Electronically Signed: Lamonte Mays DO at 21:47 EST , Discharge Plan Triage Chief Complaint: Edema ED Provider: Taiwo Gonsalves Dx/Rx/DC Orders Clinical Impression: Peripheral edema, Pulmonary hypertension Instructions: ED Peripheral Edema, Bilateral Prescriptions: No Action prazosin 1 mg capsule 1 mg PO QHS cholecalciferol (vitamin D3) 10 mcg (400 unit) capsule 10 mcg PO DAILY multivitamin [Daily Multi-Vitamin] Tablet 1 tab PO DAILY fluticasone propionate 50 mcg/actuation spray,suspension intranasal furosemide 40 mg tablet 40 mg PO QDAY sildenafil (pulm.hypertension) 20 mg tablet 40 mg PO TID Premarin 0.625 mg/gram cream vaginal cranberry 500 mg capsule 500 mg PO BID Rx Instructions: administer with meals Primary Care Provider: Julian Ng Referrals: Julian Ng MD [Primary Care Provider] - Keep Kapil appointment Activity Restrictions/Additional Instructions: Ultrasound negative for DVT. Chest x-ray negative. Labs with a creatinine of 0.70. Increase your Lasix to twice a day. Take your first dose in the morning repeat second dose around 1 to 2 PM for the next 5 days. Keep your appointment with your doctor this Monday. Print Language: Japanese Disposition Disposition: Home, Self Care Discharge Date/Time: 06/17/24 22:52
--- NOTE | 2024-06-17 20:49 | US_ITS ---
INDICATION: BILATERAL SWELLING TO LOWER LEGS EXAMINATION: Ultrasound US Venous Duplex LE Bilat Complete TECHNIQUE: [place]an scale, pulse wave, and color flow Doppler imaging was performed of the lower extremity venous system. The bilateral greater saphenous, common femoral, femoral, and popliteal veins were interrogated. COMPARISON: FINDINGS: There is normal compression, augmentation, and signal throughout the visualized deep lower extremity veins. No mass or fluid collection. There is bilateral medial edema. US/Venous Duplex Imag/Kd Extrem IMPRESSION: No sonographic evidence of deep venous thrombosis. Electronically Signed: Lamonte Mays DO at 22:42 EST Reading Location ID and State: [facility] / [place] Tel [phone], Service support ,
[2024-06-17 21:03] VITALS: BP 162/71; PULSE 65; RESP 18; O2SAT 95
--- NOTE | 2024-06-17 21:10 | RAD_ITS ---
INDICATION: sob EXAMINATION/TECHNIQUE: X-RAY - XR Chest 2 Views COMPARISON: January 06 2023 FINDINGS: LINES/DEVICES: None. LUNGS: No consolidation, edema or effusion. Apical pleural calcifications. No pneumothorax. MEDIASTINUM AND CARDIOVASCULAR STRUCTURES: Cardiac silhouette not enlarged. Central airways and mediastinal contour are unremarkable. BONES AND SOFT TISSUES: Degenerative vertebral changes. RAD/Chest PA and Lateral IMPRESSION: No radiographic evidence of acute cardiopulmonary disease. Electronically Signed: Lmaonte Mays DO at 21:47 EST ,
[2024-06-17 21:15] LABS: Bacteria 0 SEEN /hpf (None Seen); Mucous, Urine 0 SEEN /hpf (<or=2+); White Blood Cells 0 SEEN /hpf (0-5)
[2024-06-17 21:18] LABS: Absolute Neutrophil Count 7.5 X10^3/uL (2.0-7.7); Basophil# 0.05 X10^3/uL; Basophil% 0.4 % (0-1); Eosinophil# 0.34 X10^3/uL; Hematocrit 38.5 % (37-47); Hemoglobin 12.3 g/dL (12.0-15.0); Lymphocyte % 19.6 % (19-41); Mean Corp Hgb Conc 31.9 g/dL (32-36); Mean Corpuscular Hgb 28.1 pg (27.0-32.0); Mean Corpuscular Volume 87.9 fL (81-99); Mean Platelet Vol. 9.7 fl (6.2-12.0); Monocyte# 1.12 X10^3/uL; NRBC Flagged by Analyzer 0 % (0-5); Neutrophil # 7.47 X10^3/uL (2.7-7.7); Neutrophil % 66.6 % (47-70); Platelet Count 385 K/mm3 (150-450); RBC Distribution Width CV 16.5 % (11.6-14.6); RBC Distribution Width SD 52.5 fl (35.1-43.9); Red Blood Count 4.38 M/mm3 (4.2-5.4); White Blood Count 11.2 K/mm3 (4.4-11.0)
[2024-06-17 21:19] LABS: Color, Urine Yellow (Yellow); Glucose, Dipstick Normal (Normal); Ketone-Dipstick Negative (Negative); Leukocyte Esterase-Dipstick Negative /ul (Negative); Nitrite-Dipstick Negative (Negative); Occult Blood-Urine 25 /ul (Negative); Protein-Dipstick 500 mg/dl (Negative); Urine Bilirubin Dipstick Negative (Negative); Urine Clarity Clear (Clear); Urine Urobilinogen Normal (Normal)
[2024-06-17 21:30] LABS: Red Blood Cells-Urine 0-5 SEEN /hpf (0-5); Squamous Epithelial Cells - UA 0-5 SEEN /hpf (5-10)
[2024-06-17 21:33] LABS: Anion Gap 6 (5-15); BUN 20 mg/dL (7-18); BUN/Creat Ratio 28.7 RATIO (10-20); Calcium,Total 9.4 mg/dL (8.5-10.1); Chloride 105 mmol/L (98-107); EST Glomerular Filtration Rate 85 mL/min (>60); Est Glom Filt Rate - Afr Amer 102 mL/min (>60); Estimated Creatinine Clearance 50.87 ml/min; Glucose 105 mg/dL (74-106); Sodium Level 140 mmol/L (136-145)
[2024-06-17 21:38] LABS: BNP,B-Type NATRIURETIC PEPTIDE 135.2 pg/mL (0-100)
[2024-06-17 22:51] VITALS: BP 128/64; PULSE 65; RESP 18; TEMP 36.7; O2SAT 100
== END 2024-06-17 22:52 | disposition home or self-care (01) ==
PROVIDERS: Emergency Provider Emergency Medicine; PCP Family Medicine; Visit Provider Emergency Medicine
DX: R60.0 Localized edema (principal); I27.20 Pulmonary hypertension, unspecified; R06.00 Dyspnea, unspecified
CPT/HCPCS: 71046; 80048; 81001; 83880; 85025; 93970; 99283; A4216

== ENCOUNTER → 2024-06-21 | Outpatient (CLI) | payer MEDICARE, SELFPAY ==
[2024-06-21 18:29] LABS: ALB/GLOB Ratio 0.6 RATIO (0.9-2.4); AST(SGOT) 38 U/L (15-37); Alanine Aminotransfer ALT/SGPT 29 U/L (13-56); Albumin, Serum 2.1 g/dL (3.2-5.0); Alkaline Phosphatase 105 U/L (45-117); Anion Gap 6 (5-15); BUN 23 mg/dL (7-18); BUN/Creat Ratio 28.9 RATIO (10-20); Calcium,Total 9.1 mg/dL (8.5-10.1); Chloride 102 mmol/L (98-107); EST Glomerular Filtration Rate 73 mL/min (>60); Est Glom Filt Rate - Afr Amer 88 mL/min (>60); Globulin 3.7 g/dL (2.2-4.2); Glucose 128 mg/dL (74-106); Potassium 4.1 mmol/L (3.5-5.1); Protein, Total 5.8 g/dL (6.4-8.2); Sodium Level 136 mmol/L (136-145)
[2024-06-22 09:31] LABS: Vitamin B12 695 pg/mL (211-911)
== END | disposition home or self-care (01) ==
LOC: MFPLAB 16:15
PROVIDERS: PCP Family Medicine; Referring Provider Family Medicine; Visit Provider Family Medicine
DX: G62.9 Polyneuropathy, unspecified (principal)
CPT/HCPCS: 36415; 80053; 82607; 84207; 84425

== ENCOUNTER → 2024-06-25 | Outpatient (CLI) | payer MEDICARE, SELFPAY ==
--- NOTE | 2024-06-25 14:05 | BD_ITS ---
PROCEDURE: DEXA BONE DENSITY STUDY REASON FOR EXAM: Screening for osteoporosis TECHNIQUE: DEXA scan of the lumbar spine and both hips. COMPARISON: Reviewed. FINDINGS: T-SCORES Lumbar spine: Total bone mineral density 0.844, T-score -1.8, Z-score 1.0, increase of 8.5% from the prior exam which is statistically significant. Left hip: Total bone mineral density 0.631, T-score -2.5, Z-score -0.2, increase of 10% from the prior exam which is statistically significant. FRAX* Results: 10 Year Probability of Fracture: Hip Fracture(1): 12% Major Osteoporotic Fracture(2): 29% *FRAX is a trademark of the [employer]'s [employer] for Metabolic Bone Disease, World Health Organization (WHO) Collaborating [employer]. 1-The 10-year probability of fracture may be lower than reported if the patient has received treatment. 2-Major Osteoporotic Fracture: Clinical Spine, Forearm, Hip or Shoulder. The T-scores are also available for review on the [facility] PACS or by accessing the [facility] electronic medical record. BD/Dexa Bone Density Study IMPRESSION: Osteoporosis. Reading Location: [facility]
== END | disposition home or self-care (01) ==
PROVIDERS: PCP Family Medicine; Referring Provider Family Medicine; Visit Provider Family Medicine
DX: M81.0 Age-related osteoporosis without current pathological fracture (principal)
CPT/HCPCS: 77080

== ENCOUNTER → 2024-07-05 | Outpatient (CLI) | payer MEDICARE, SELFPAY ==
[2024-07-05 19:21] LABS: ALB/GLOB Ratio 0.5 RATIO (0.9-2.4); AST(SGOT) 98 U/L (15-37); Alanine Aminotransfer ALT/SGPT 31 U/L (13-56); Albumin, Serum 1.9 g/dL (3.2-5.0); Alkaline Phosphatase 120 U/L (45-117); Anion Gap 9 (5-15); BUN 27 mg/dL (7-18); BUN/Creat Ratio 33.5 RATIO (10-20); Calcium,Total 9.3 mg/dL (8.5-10.1); Chloride 107 mmol/L (98-107); EST Glomerular Filtration Rate 72 mL/min (>60); Est Glom Filt Rate - Afr Amer 87 mL/min (>60); Globulin 3.7 g/dL (2.2-4.2); Glucose 127 mg/dL (74-106); Protein, Total 5.6 g/dL (6.4-8.2); Sodium Level 140 mmol/L (136-145)
[2024-07-07 07:07] LABS: Prealbumin 21 mg/dL (9-32)
== END | disposition home or self-care (01) ==
LOC: MFPLAB 14:57
PROVIDERS: PCP Family Medicine; Referring Provider Family Medicine; Visit Provider Family Medicine
DX: R77.0 Abnormality of albumin (principal)
CPT/HCPCS: 36415; 80053; 84134

== ENCOUNTER → 2024-07-12 | Outpatient (CLI) | payer MEDICARE, SELFPAY ==
--- NOTE | 2024-07-12 15:09 | CT_ITS ---
PROCEDURE: CT ABDOMEN AND PELVIS WITH INTRAVENOUS CONTRAST REASON FOR EXAM: Belly pain. Possible mass in the region of the umbilicus. TECHNIQUE: Contiguous axial scans of 2.5 mm slice thicknesses. Sagittal and coronal reconstruction images were obtained. One or more dose reduction techniques were used (e.g., automated exposure control, adjustment of mA and/or kv according to patient size, use of iterative reconstruction technique). IV CONTRAST: Isovue-300. 75 mL. COMPARISON: Ultrasound dated 01/26/2024 FINDINGS: Lung bases: Clear Liver: Hepatomegaly. No masses. Normal attenuation. Gallbladder: Unremarkable. Spleen: Unremarkable. Pancreas: Atrophy. Adrenals: Unremarkable. Kidneys: Unremarkable. Bladder: Unremarkable. Reproductive Organs: Unremarkable. Bowel: Unremarkable. Appendix: Normal. Lymph nodes: No suspicious lymph node enlargement. Vasculature: Atherosclerotic calcifications of the aorta. Peritoneum / Retroperitoneum: No ascites. No free air. Lung bases: Hypoventilatory changes and/or scarring in the dependent lungs. Bones: Right hip hemiarthroplasty. Multilevel spondylosis and degenerative disc disease. CT/Abdomen/Pelvis W IV Cont ONLY IMPRESSION: 1. Hepatomegaly. 2. Pancreatic atrophy. 3. Other nonacute findings detailed above. Reading Location: [facility]
== END | disposition home or self-care (01) ==
PROVIDERS: PCP Family Medicine; Referring Provider Family Medicine; Visit Provider Family Medicine
DX: R19.00 Intra-abdominal and pelvic swelling, mass and lump, unspecified site (principal)
CPT/HCPCS: 74177; Q9967

== ENCOUNTER → 2024-07-29 | Outpatient (CLI) | payer MEDICARE, SELFPAY ==
[2024-07-29 16:48] LABS: Absolute Neutrophil Count 7.6 X10^3/uL (2.0-7.7); Basophil# 0.07 X10^3/uL; Basophil% 0.6 % (0-1); Eosinophils% 2.5 % (0-5); Hematocrit 39.5 % (37-47); Hemoglobin 13.2 g/dL (12.0-15.0); Lymphocyte % 23.9 % (19-41); Mean Corp Hgb Conc 33.4 g/dL (32-36); Mean Corpuscular Hgb 29.7 pg (27.0-32.0); Mean Corpuscular Volume 88.8 fL (81-99); Mean Platelet Vol. 10.5 fl (6.2-12.0); Monocyte# 1.21 X10^3/uL; NRBC Flagged by Analyzer 0 % (0-5); Neutrophil # 7.59 X10^3/uL (2.7-7.7); Neutrophil % 62.5 % (47-70); Platelet Count 451 K/mm3 (150-450); Red Blood Count 4.45 M/mm3 (4.2-5.4); White Blood Count 12.1 K/mm3 (4.4-11.0)
[2024-07-29 18:59] LABS: Hepatitis C Antibody Nonreactive (Nonreactive)
[2024-07-29 19:11] LABS: Pro- Brain NATRIURETIC PEPTIDE 694 pg/mL (<=1800)
[2024-07-29 19:42] LABS: ALB/GLOB Ratio 0.9 RATIO (0.9-2.4); AST(SGOT) 46 U/L (<=31); Alanine Aminotransfer ALT/SGPT 22 U/L (<=34); Albumin, Serum 2.5 g/dL (3.4-4.8); Alkaline Phosphatase 128 U/L (35-104); Anion Gap 9 (5-15); BUN 25 mg/dL (4-19); BUN/Creat Ratio 31.5 RATIO (10-20); Calcium,Total 9.1 mg/dL (7.6-11.0); Carbon Dioxide 26.2 mmol/L (21.0-32.0); Chloride 100 mmol/L (98-108); EST Glomerular Filtration Rate 72 (>60); Globulin 2.9 g/dL (2.2-4.2); Glucose 107 mg/dL (70-99); Potassium 4.3 mmol/L (3.3-5.1); Protein, Total 5.4 g/dL (5.9-8.4); Sodium Level 136 mmol/L (133-145); Total Bilirubin < 0.15 mg/dL (0.00-1.30)
[2024-07-29 20:01] LABS: Cholesterol 584 mg/dL (<=200); High Density Lipoprotein 33 mg/dL; Low Density Lipoprotein Calc. 326 mg/dL; Triglycerides 1125 mg/dL; Very Low Density Lipoprotein 225 mg/dL (5-40); cholesterol:hdl ratio screen 17.64
== END | disposition home or self-care (01) ==
LOC: POLAB3 16:19
PROVIDERS: PCP Family Medicine; Visit Provider Family Medicine Geriatric Medicine
DX: I27.20 Pulmonary hypertension, unspecified (principal); I50.31 Acute diastolic (congestive) heart failure; E55.9 Vitamin D deficiency, unspecified; Z13.89 Encounter for screening for other disorder
CPT/HCPCS: 36415; 80053; 80061; 82306; 83880; 84443; 85025; 86803

== ENCOUNTER → 2024-07-30 | Outpatient (CLI) | payer MEDICARE, SELFPAY ==
--- NOTE | 2024-07-30 10:57 | VDLE_ITS ---
Reason For Study Reason For Study: SWELLING RIGHT LEFT GSV is normal. GSV is normal. CFV is compressible, spontaneous, phasic, competent CFV is compressible, spontaneous, phasic, competent, and demonstrates normal augmentation. and demonstrates normal augmentation. FV is compressible, spontaneous, phasic, competent FV is compressible, spontaneous, phasic, competent and demonstrates normal augmentation. and demonstrates normal augmentation. POP V is compressible, spontaneous, phasic, competent POP V is compressible, spontaneous, phasic, competent and demonstrates normal augmentation. and demonstrates normal augmentation. T/P Trunk is compressible. T/P Trunk is compressible. PTV is compressible. PTV is compressible. RT PerV is compressible. LT PerV is compressible. Procedure This is a venous duplex using B-mode, color flow and spectral Doppler. Exam performed in department. The study was technically difficult. Due to bilatral leg edema. A preliminary report was called and/or faxed to Donny Turpin Chi. VL/Venous Duplex US - Kd Extrem Interpretation Summary Deep veins of the bilateral lower extremities are patent and compressible segme ntally. There is no evidence of bilateral lower extremity deep vein thrombosis. The bilateral great saphenous veins appea r patent and compressible segmentally. Ordering Physician: Donny Turpin Chi Referring Physician: Donny Turpin Chi Performed By: Carlene Joshi, RDCS, RVT
== END | disposition home or self-care (01) ==
LOC: CVS 10:56
PROVIDERS: PCP Family Medicine Geriatric Medicine; Referring Provider Family Medicine Geriatric Medicine; Visit Provider Family Medicine Geriatric Medicine
DX: R22.43 Localized swelling, mass and lump, lower limb, bilateral (principal)
CPT/HCPCS: 93970

== ENCOUNTER → 2024-08-02 | Outpatient (CLI) | payer MEDICARE, SELFPAY ==
[2024-08-02 12:30] LABS: Absolute Lymphocyte Count 2.31 X10^3/uL (0.83-4.51); Absolute Neutrophil Count 7.5 X10^3/uL (2.0-7.7); Basophil# 0.07 X10^3/uL; Basophil% 0.6 % (0-1); Eosinophil# 0.27 X10^3/uL; Eosinophils% 2.4 % (0-5); Hematocrit 42.7 % (37-47); Hemoglobin 13.8 g/dL (12.0-15.0); Lymphocyte # 2.31 X10^3/ul (0.83-4.51); Lymphocyte % 20.6 % (19-41); Mean Corp Hgb Conc 32.3 g/dL (32-36); Mean Corpuscular Hgb 29.2 pg (27.0-32.0); Mean Corpuscular Volume 90.3 fL (81-99); Mean Platelet Vol. 10.5 fl (6.2-12.0); Monocyte# 1.04 X10^3/uL; Monocyte% 9.3 % (0-10); NRBC Flagged by Analyzer 0 % (0-5); Neutrophil # 7.47 X10^3/uL (2.7-7.7); Neutrophil % 66.7 % (47-70); Platelet Count 457 K/mm3 (150-450); RBC Distribution Width CV 18.1 % (11.6-14.6); RBC Distribution Width SD 58.4 fl (35.1-43.9); Red Blood Count 4.73 M/mm3 (4.2-5.4); White Blood Count 11.2 K/mm3 (4.4-11.0)
--- NOTE | 2024-08-02 12:30 | RAD_ITS ---
EXAM: XR Thoracic Spine, 2 Views CLINICAL INDICATION: THORACIC BACK PAIN TECHNIQUE: Frontal and lateral views of the thoracic spine. COMPARISON: No relevant prior studies available. FINDINGS: VERTEBRAE: Degenerative disc disease and facet arthropathy throughout the thoracic spine. Normal alignment. No acute fracture. DISC SPACES: See above. SOFT TISSUES: Unremarkable. RAD/Thoracic Spine 2 Views IMPRESSION: 1. No acute fracture. 2. Degenerative changes thoracic spine as described. Reading Location: [facility]
--- NOTE | 2024-08-02 12:30 | RAD_ITS ---
EXAM: XR Right Knee, 1 or 2 Views CLINICAL INDICATION: KNEE PAIN TECHNIQUE: Frontal and/or lateral views of the right knee. COMPARISON: No relevant prior studies available. FINDINGS: BONES/JOINTS: Mild tricompartmental degenerative changes. No acute fracture. No dislocation. SOFT TISSUES: Soft tissue swelling. RAD/Knee 1 or 2 Views IMPRESSION: Degenerative changes as above. Reading Location: [facility]
--- NOTE | 2024-08-02 12:30 | RAD_ITS ---
EXAM: XR Left Knee, 1 or 2 Views CLINICAL INDICATION: KNEE PAIN TECHNIQUE: Frontal and/or lateral views of the left knee. COMPARISON: No relevant prior studies available. FINDINGS: BONES/JOINTS: Bowel tricompartmental degenerative changes. No acute fracture. No dislocation. SOFT TISSUES: Mild soft tissue swelling. RAD/Knee 1 or 2 Views IMPRESSION: Degenerative changes as above. Reading Location[facility]
[2024-08-02 12:53] LABS: Erythrocyte Sedimentation Rate 85 mm/hr (0-30)
[2024-08-02 14:22] LABS: ALB/GLOB Ratio 0.8 RATIO (0.9-2.4); AST(SGOT) 47 U/L (<=31); Alanine Aminotransfer ALT/SGPT 21 U/L (<=34); Albumin, Serum 2.5 g/dL (3.4-4.8); Alkaline Phosphatase 129 U/L (35-104); Anion Gap 10 (5-15); BUN 19 mg/dL (4-19); BUN/Creat Ratio 25.3 RATIO (10-20); CRP < 3.00 mg/L (0.0-3.0); Calcium,Total 8.7 mg/dL (7.6-11.0); Carbon Dioxide 23.6 mmol/L (21.0-32.0); Chloride 102 mmol/L (98-108); Creatinine, Serum 0.76 mg/dL (0.70-1.20); EST Glomerular Filtration Rate 76 (>60); Globulin 3.1 g/dL (2.2-4.2); Glucose 106 mg/dL (70-99); Potassium 4.8 mmol/L (3.3-5.1); Protein, Total 5.6 g/dL (5.9-8.4); Sodium Level 136 mmol/L (133-145); Total Bilirubin < 0.15 mg/dL (0.00-1.30)
== END | disposition home or self-care (01) ==
LOC: POLAB3 12:18
PROVIDERS: PCP Family Medicine Geriatric Medicine; Visit Provider Family Medicine Geriatric Medicine
DX: M25.561 Pain in right knee (principal); M54.6 Pain in thoracic spine; R22.43 Localized swelling, mass and lump, lower limb, bilateral
CPT/HCPCS: 36415; 72070; 73560; 80053; 85025; 85652; 86140

== ENCOUNTER → 2024-08-09 | Outpatient (CLI) | payer MEDICARE, SELFPAY ==
[2024-08-09 12:14] LABS: Absolute Lymphocyte Count 2.82 X10^3/uL (0.83-4.51); Absolute Neutrophil Count 9.5 X10^3/uL (2.0-7.7); Basophil# 0.08 X10^3/uL; Basophil% 0.6 % (0-1); Eosinophil# 0.21 X10^3/uL; Eosinophils% 1.5 % (0-5); Hematocrit 39.5 % (37-47); Hemoglobin 13.1 g/dL (12.0-15.0); Lymphocyte # 2.82 X10^3/ul (0.83-4.51); Lymphocyte % 19.7 % (19-41); Mean Corp Hgb Conc 33.2 g/dL (32-36); Mean Corpuscular Hgb 29.7 pg (27.0-32.0); Mean Corpuscular Volume 89.6 fL (81-99); Mean Platelet Vol. 10.2 fl (6.2-12.0); Monocyte# 1.56 X10^3/uL; Monocyte% 10.9 % (0-10); NRBC Flagged by Analyzer 0 % (0-5); Neutrophil % 66.5 % (47-70); POSITIVE DIFFERENTIAL YES; Platelet Count 435 K/mm3 (150-450); RBC Distribution Width CV 17.7 % (11.6-14.6); RBC Distribution Width SD 57.9 fl (35.1-43.9); Red Blood Count 4.41 M/mm3 (4.2-5.4); White Blood Count 14.3 K/mm3 (4.4-11.0)
[2024-08-09 12:19] LABS: Erythrocyte Sedimentation Rate 92 mm/hr (0-30)
[2024-08-09 12:29] LABS: Differential Indicated SCAN CRITERIA MET
[2024-08-09 13:00] LABS: Polychromasia 1+
[2024-08-09 13:03] LABS: Pathologist Review May foll; Platelet Estimate A (ADEQ)
[2024-08-09 13:18] LABS: Anion Gap 8 (5-15); BUN 28 mg/dL (4-19); BUN/Creat Ratio 38.1 RATIO (10-20); Calcium,Total 8.9 mg/dL (7.6-11.0); Chloride 101 mmol/L (98-108); Creatinine, Serum 0.74 mg/dL (0.70-1.20); EST Glomerular Filtration Rate 78 (>60); Glucose 122 mg/dL (70-99); Potassium 4.4 mmol/L (3.3-5.1); Sodium Level 136 mmol/L (133-145)
[2024-08-09 14:06] LABS: CRP < 3.00 mg/L (0.0-3.0)
== END | disposition home or self-care (01) ==
LOC: POLAB3 11:48
PROVIDERS: PCP Family Medicine Geriatric Medicine; Visit Provider Family Medicine Geriatric Medicine
DX: R22.43 Localized swelling, mass and lump, lower limb, bilateral (principal)
CPT/HCPCS: 36415; 80048; 85025; 85652; 86140

== ENCOUNTER → 2024-10-29 | Outpatient (CLI) | payer MEDICARE, SELFPAY ==
[2024-10-29 16:42] LABS: Absolute Lymphocyte Count 0.67 X10^3/uL (0.83-4.51); Absolute Neutrophil Count 10.4 X10^3/uL (2.0-7.7); Basophil# 0.02 X10^3/uL; Basophil% 0.2 % (0-1); Hematocrit 42.7 % (37-47); Hemoglobin 14.5 g/dL (12.0-15.0); Lymphocyte # 0.67 X10^3/ul (0.83-4.51); Lymphocyte % 5.8 % (19-41); Mean Corpuscular Hgb 30.1 pg (27.0-32.0); Mean Corpuscular Volume 88.6 fL (81-99); Monocyte# 0.37 X10^3/uL; Monocyte% 3.2 % (0-10); NRBC Flagged by Analyzer 0 % (0-5); Neutrophil # 10.42 X10^3/uL (2.7-7.7); Neutrophil % 89.9 % (47-70); Platelet Count 382 K/mm3 (150-450); RBC Distribution Width CV 17.8 % (11.6-14.6); RBC Distribution Width SD 56.5 fl (35.1-43.9); Red Blood Count 4.82 M/mm3 (4.2-5.4); White Blood Count 11.6 K/mm3 (4.4-11.0)
[2024-10-29 17:45] LABS: Cholesterol 793 mg/dL (<=200); High Density Lipoprotein 30 mg/dL; Low Density Lipoprotein Calc. 526 mg/dL; Triglycerides 1183 mg/dL; Very Low Density Lipoprotein 237 mg/dL (5-40); cholesterol:hdl ratio screen 26.09
[2024-10-29 17:53] LABS: ALB/GLOB Ratio 0.9 RATIO (0.9-2.4); AST(SGOT) 35 U/L (<=31); Alanine Aminotransfer ALT/SGPT 29 U/L (<=34); Albumin, Serum 2.3 g/dL (3.4-4.8); Alkaline Phosphatase 170 U/L (35-104); Anion Gap 11 (5-15); BUN 40 mg/dL (4-19); Calcium,Total 8.1 mg/dL (7.6-11.0); Carbon Dioxide 22.7 mmol/L (21.0-32.0); Chloride 98 mmol/L (98-108); Creatinine, Serum 1.21 mg/dL (0.70-1.20); EST Glomerular Filtration Rate 43 (>60); Globulin 2.7 g/dL (2.2-4.2); Glucose 147 mg/dL (70-99); Potassium 3.5 mmol/L (3.3-5.1); Sodium Level 131 mmol/L (133-145); Total Bilirubin < 0.15 mg/dL (0.00-1.30); Vitamin D,25 Hydroxy < 6.0 ng/mL (30-100)
== END | disposition home or self-care (01) ==
LOC: LAB 15:36
PROVIDERS: PCP Family Medicine Geriatric Medicine; Referring Provider Family Medicine Geriatric Medicine; Visit Provider Family Medicine Geriatric Medicine
DX: E55.9 Vitamin D deficiency, unspecified (principal); R53.83 Other fatigue; E78.5 Hyperlipidemia, unspecified
CPT/HCPCS: 36415; 80053; 80061; 82306; 84443; 85025

== ENCOUNTER 2024-11-04 09:12 | Observation (INO) | payer MEDICARE, SELFPAY ==
[2024-11-04] VITALS (12 sets, daily range): BP systolic 124–141; BP diastolic 53–65; PULSE 50–76; RESP 14–20; TEMP 36.4–36.6; O2SAT 94–97; BMI 20.8; BMI 19.6
--- NOTE | 2024-11-04 09:23 | EKG12_ITS ---
Test Reason : BACK PAIN Blood Pressure : */* mmHG Vent. Rate : 68 BPM Atrial Rate : 68 BPM P-R Int : 182 ms QRS Dur : 84 ms QT Int : 422 ms P-R-T Axes : 84 38 74 degrees QTcB Int : 448 ms Sinus rhythm with Premature atrial complexes Nonspecific ST and T wave abnormality Abnormal ECG Confirmed by ASCENCION JONES, ALEX ([id number]), copy editor KENYETTA MALDONADO ([id number]) on 11/05/2024 10:48:43 AM Referred By: Marcus Palomino Confirmed By: ALEX VEGAS MD
--- NOTE | 2024-11-04 09:34 | EX.ED.DYSGE1 ---
HPI History of Present Illness Chief Complaint: Other, Pain/Inj Narrative Narrative: Patient is a 89-year-old female with past medical history of pulmonary hypertension, amyloidosis, hypothyroidism who presents to the emergency department with a chief complaint of back pain and shortness of breath. Patient states that this morning when she woke up she noted that she had pain between her shoulder blades and noted that she had shortness of breath when she was walking. She states that she follows with Dr. Espinosa for her amyloidosis. She states that since May her health has declined significantly she states that prior to this she was a perfect bill of health. Patient denies any sick contacts. Patient denies recent travel history denies any history of blood clots. [facility] Medical History Pulmonary hypertension Amyloidosis Left knee pain Fracture of radial head, left, closed Home Medications ?Medication ?Instructions ?Recorded ?Last Taken ?Type cholecalciferol (vitamin D3) 10 10 mcg PO DAILY 02/01/22 Unknown History mcg (400 unit) capsule multivitamin (Daily Multi-Vitamin 1 tab PO DAILY 02/01/22 Unknown History tablet) prazosin 1 mg capsule 1 mg PO QHS 02/01/22 Unknown History conjugated estrogens 0.625 mg/gram vaginal 04/06/24 Unknown History vaginal cream (Premarin) cranberry 500 mg capsule 500 mg PO BID 04/06/24 Unknown History fluticasone propionate 50 spray intranasal 04/06/24 Unknown History mcg/actuation nasal spray,suspension furosemide 40 mg tablet 40 mg PO QDAY 04/06/24 Unknown History sildenafil (pulm.hypertension) 20 40 mg PO TID 04/06/24 Unknown History mg tablet Allergy/AdvReac Type Severity Reaction Status Date / Time Sulfa (Sulfonamide Allergy Mild Hives Verified 11/04/24 09:22 Antibiotics) decongestants Allergy Mild Hives Uncoded 04/06/24 10:41 Social History Smoking Status: Former smoker ROS ROS ED ROS Narrative Constitutional: Denies any fevers, chills, headaches Eyes: Denies double vision Cardiovascular: Denies palpitations states that she does have some pain radiating to her shoulder blades Respiratory: Complains of shortness of breath as noted above denies coughing Abdomen: Denies abdominal pain nausea vomit diarrhea : Denies urinary symptoms Neurological: Denies numbness, wheeze, tingling Musculoskeletal: Complains of back pain as noted above Skin: Denies rashes or lesions EXAM Physical Exam Narrative Exam Narrative: General: Patient is lying in bed rest comfortably do not appear to be acute distress Head: Atraumatic, normocephalic Eyes: PERRL bilaterally, EOMI bilateral, no conjunctival injection noted Neck: Soft, supple, trachea midline Cardiovascular: Regular rate and rhythm Respiratory: Clear to auscultation bilaterally Abdomen: Soft, nondistended, nontender to palpation Extremities: Radial pulses +2/4 in the bilateral extremities, +4/5 strength noted in the bilateral extremities, +3/5 strength noted in the bilateral lower extremities, patient has 2+ pitting edema in bilateral lower extremities Neurological: Patient following commands knew that she was at [facility] year is 2024 Skin: Warm, dry, intact no rashes lesions noted Const Vital Signs: 11/04/24 09:13 11/04/24 09:23 11/04/24 09:30 Temperature 97.5 F L Temperature Source Oral Pulse Rate 71 Respiratory Rate 14 Respiratory Effort Normal Non-Labored Respiratory Pattern Normal Blood Pressure 135/60 H Blood Pressure Mean 85 Pulse Ox 96 Oxygen Delivery Method Room Air Room Air 11/04/24 10:12 11/04/24 11:00 11/04/24 12:00 Temperature Temperature Source Pulse Rate 58 L 60 52 L Respiratory Rate 16 20 H 16 Respiratory Effort Respiratory Pattern Blood Pressure 127/53 H 128/64 H 127/61 H Blood Pressure Mean 77 85 83 Pulse Ox 95 96 97 Oxygen Delivery Method Room Air Room Air 11/04/24 13:00 11/04/24 14:00 Temperature Temperature Source Pulse Rate 57 L 59 L Respiratory Rate 14 14 Respiratory Effort Respiratory Pattern Blood Pressure 124/63 H Blood Pressure Mean 83 Pulse Ox 95 95 Oxygen Delivery Method Room Air Room Air MDM MDM MDM Narrative Medical decision making narrative: Patient is a 89-year-old female who presented to the emerged part with chief complaint of back pain, dyspnea on exertion. On the differential diagnosis includes but not limited to CHF, ACS, pneumonia, pneumothorax, , AAA. Once workup is obtained reviewed she will be reevaluated. Bedside echocardiogram performed and no large pericardial effusion was noted. Patient's echocardiogram from 02/20/2023 was reviewed that showed a ejection fraction of 65% with grade 2 diastolic dysfunction present. Patient's CBC reviewed showed white blood count 11,000, hemoglobin 13.3, plate count of 367. Patient sodium is 131, potassium low at 3.3, creatinine was 1.56. Patient's glucose was 139. Patient's troponin was 59 with a delta troponin pending. Patient's EKG was reviewed and showed sinus rhythm with PACs noted with a rate of 68 bpm. Patient proBNP elevated at 3334 should be given IV Bumex 1 mg.. Patient TSH was 5.98 and free T4 and T3 were 1 and 1.2 respectively patient chest x-ray reviewed and showed no acute cardiopulmonary processes this was reviewed by myself and by radiology. Given her back pain between her shoulder blades we will add a CTA of her chest on with her elevated troponin and proBNP. Patient CTA chest showed no evidence of PE fullness of the subcarinal region suggestive of mild adenopathy. Given the patient's worsening renal function, +2 pitting edema in the bilateral lower extremities despite being on torsemide, elevated proBNP dyspnea on exertion do believe she will warrant admission to the hospital discussed case with hospitalist. Discussed case with hospitalist Dr. Palomino who accept patient for admission. Lab Data Labs: Laboratory Results - last 24 hr 11/04/24 11/04/24 11/04/24 09:26 11:25 13:43 WBC 11.6 H RBC 4.44 Hgb 13.3 Hct 38.8 MCV 87.4 MCH 30.0 MCHC 34.3 RDW Std Deviation 56.8 H RDW Coeff of Jessy 18.1 H Plt Count 367 MPV 10.8 Immature Gran % (Auto) 1.100 H Neut % (Auto) 76.5 H Lymph % (Auto) 11.7 L Hitchcock % (Auto) 9.0 Eos % (Auto) 1.4 Baso % (Auto) 0.3 Absolute Neuts (auto) 8.9 H Absolute Lymphs (auto) 1.36 Nucleated RBC % 0 Sodium 131 L Potassium 3.3 Chloride 97 L Carbon Dioxide 22.9 Anion Gap 11 BUN 42 H Creatinine 1.56 H Estim Creat Clear Calc 22.78 L Est GFR (MDRD) Non-Af 32 L BUN/Creatinine Ratio 27.1 H Glucose 139 H Calcium 8.4 Troponin T High Sens 59 H* Troponin T Hi Sens 2 Hr 51 H Troponin T Hi Sens 4Hr 53 H NT pro BNP II 3334 H TSH 5.980 H Free T4 1.00 Free T3 pg/dL 1.2 L Radiography Diagnostic Testing: Clinical Impression(s) from Imaging Studies Chest X-Ray 11/04/24 10:00 IMPRESSION: No acute abnormality is seen. Reading Location: [facility] Chest CTA 11/04/24 10:45 IMPRESSION: No evidence of pulmonary embolism. Fullness in the subcarinal region suggestive of mild adenopathy. Reading Location: [facility] Discharge Plan Triage Chief Complaint: Other, Pain/Inj ED Provider: Chris Genao Dx/Rx/DC Orders Clinical Impression: CHF exacerbation, Dyspnea on exertion, Localized swelling of both lower legs, Myocardial infarction type 2 Prescriptions: No Action prazosin 1 mg capsule 1 mg PO QHS cholecalciferol (vitamin D3) 10 mcg (400 unit) capsule 10 mcg PO DAILY multivitamin [Daily Multi-Vitamin] Tablet 1 tab PO DAILY fluticasone propionate 50 mcg/actuation spray,suspension intranasal furosemide 40 mg tablet 40 mg PO QDAY sildenafil (pulm.hypertension) 20 mg tablet 40 mg PO TID Premarin 0.625 mg/gram cream vaginal cranberry 500 mg capsule 500 mg PO BID Rx Instructions: administer with meals Primary Care Provider: Donny Turpin Chi Referrals: Donny Turpin Chi, MD [Primary Care Provider] - Print Language: Slovak Disposition Disposition: Acute Care Hospital [facility]
[2024-11-04 09:35] LABS: Absolute Lymphocyte Count 1.36 X10^3/uL (0.83-4.51); Absolute Neutrophil Count 8.9 X10^3/uL (2.0-7.7); Basophil# 0.04 X10^3/uL; Basophil% 0.3 % (0-1); Eosinophil# 0.16 X10^3/uL; Eosinophils% 1.4 % (0-5); Hematocrit 38.8 % (37-47); Hemoglobin 13.3 g/dL (12.0-15.0); Lymphocyte # 1.36 X10^3/ul (0.83-4.51); Lymphocyte % 11.7 % (19-41); Mean Corp Hgb Conc 34.3 g/dL (32-36); Mean Corpuscular Volume 87.4 fL (81-99); Mean Platelet Vol. 10.8 fl (6.2-12.0); Monocyte# 1.05 X10^3/uL; NRBC Flagged by Analyzer 0 % (0-5); Neutrophil # 8.87 X10^3/uL (2.7-7.7); Neutrophil % 76.5 % (47-70); Platelet Count 367 K/mm3 (150-450); RBC Distribution Width CV 18.1 % (11.6-14.6); RBC Distribution Width SD 56.8 fl (35.1-43.9); Red Blood Count 4.44 M/mm3 (4.2-5.4); White Blood Count 11.6 K/mm3 (4.4-11.0)
[2024-11-04 09:57] LABS: Anion Gap 11 (5-15); BUN 42 mg/dL (4-19); BUN/Creat Ratio 27.1 RATIO (10-20); Calcium,Total 8.4 mg/dL (7.6-11.0); Carbon Dioxide 22.9 mmol/L (21.0-32.0); Chloride 97 mmol/L (98-108); Creatinine, Serum 1.56 mg/dL (0.70-1.20); EST Glomerular Filtration Rate 32 (>60); Estimated Creatinine Clearance 22.78 ml/min (50-250); Glucose 139 mg/dL (70-99); Potassium 3.3 mmol/L (3.3-5.1); Pro- Brain NATRIURETIC PEPTIDE 3334 pg/mL (<=1800); Sodium Level 131 mmol/L (133-145); Troponin T High Sensitivity 59 ng/L (<=14)
--- NOTE | 2024-11-04 10:00 | RAD_ITS ---
PROCEDURE: CHEST PA AND LATERAL 11/04/2024 REASON FOR EXAM: CHEST PAIN TECHNIQUE: CHEST PA AND LATERAL COMPARISON: Prior study dated June 17, 2024. FINDINGS: Hardware: EKG electrodes are seen. Heart: Heart is nonenlarged. Mediastinum: The mediastinal contour is unremarkable. Lungs: Hyperinflation. The lungs are clear. Bones: Degenerative changes are identified within the thoracic spine. RAD/Chest PA and Lateral IMPRESSION: No acute abnormality is seen. Reading Location: [facility]
--- NOTE | 2024-11-04 10:45 | CT_ITS ---
PROCEDURE: CTA CHEST W/WO CONTRAST 11/04/2024 REASON FOR EXAM: SOB, BAKC PAIN TECHNIQUE: CTA CHEST W/WO CONTRAST multiplanar and multisequence images were obtained. One or more dose reduction techniques were used (e.g., Automated exposure control, adjustment of the mA and/or kV according to patient size, use of iterative reconstruction technique). CONTRAST: Isovue 3 7 VOLUME: 100 mL RADIATION DOSE SUMMARY: CTDlvol: 7.24 mGy DLP: 137.12 mGycm COMPARISON: Prior chest radiograph done earlier in the day. Prior CT scan of the chest dated February 20, 2023. FINDINGS: Hardware: None Lymph nodes: Calcified left hilar lymph nodes. Calcified granuloma in the left lower lobe. Soft tissue fullness in the subcarinal region suggestive of possible adenopathy. This has progressed as compared to prior study. Heart: Coronary artery calcification. Thoracic Aorta: No thoracic aortic aneurysm or dissection. Atherosclerotic plaque formation. Pulmonary Vessels: No evidence of pulmonary embolism Lungs and Airways: Calcified granuloma in the left lower lobe. No pulmonary consolidation or infiltration is seen. Fibrocalcific scarring at the lung apices more pronounced at the right lung apex. Pleura: No pleural effusion. Upper Abdomen: Unremarkable Bones: Degenerative changes of the thoracic spine. CT/CTA Chest W/WO Contrast IMPRESSION: No evidence of pulmonary embolism. Fullness in the subcarinal region suggestive of mild adenopathy. Reading Location: [place] [id number]
[2024-11-04 11:19] LABS: Free T3 1.2 pg/mL (2.18-3.98)
[2024-11-04 12:19] LABS: Troponin T High Sens 2 HR 51 ng/L (<=14)
[2024-11-04 14:10] LABS: Troponin T High Sens 4 HR 53 ng/L (<=14)
--- NOTE | 2024-11-04 14:41 | PCM.HP.STD ---
HPI - General General Date of Admission: 11/04/24 Date of Service: 11/04/24 Chief Complaint: Worsening shortness of breath with exertion HPI Narrative DES DUFFY, is a 89 F who presented to [facility] ED on 11/04/2024 with worsening shortness of breath with exertion. 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 Read Dr. Espinosa's office note from 11/01 in [facility] that was very beneficial. In short, patient had known prior history of pulmonary hypertension and diastolic dysfunction that was confirmed on right heart cath in 2023; does not appear this was attributed to amyloidosis. Follows with Dr. Garcia and has been on sildenafil for this for some time. Per Dr. Espinosa, she was recently found to have 2 monoclonal antibodies and a potential third lambda light chain monoclonal antibody on recent workup for severe proteinuria. 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 Recent echo on 09/17 showed EF 60%, no change from previous echo back in 2022. Plan is for patient to have bone marrow biopsy done soon followed by treatment with daratumumab, bortezomib and cyclophosphamide. She is also scheduled to get a whole-body PET scan soon. She presented today with reported recent worsening of shortness of breath with exertion. However Dr. Espinosa notes that while patient lives independently at home, she has had rapidly progressive fatigue and weakness over the past several weeks. She does get hungry but due to metallic taste for about 4 to 6 weeks, she has not been eating much. Has had about a 15 pound weight loss since July. Has had significant swelling in her legs for the past 3 to 4 months. Was started on torsemide and this reportedly was helping somewhat. However, she has had significant shortness of breath with only limited exertion now recently as well. In the ED today patient was breathing comfortably on room air at rest. Does have +4 lower extremity pitting edema up to above the knees. BNP is elevated at 3334 but notably CTA chest is fairly benign with no pleural effusions noted. There was concern for heart failure/the patient so hospitalist was contacted for admission. I saw the patient at bedside in the ED. She was sitting up comfortably in bed, conversing normally and in no acute distress at rest. She denies any current pain or discomfort. Will be admitted for further management. [facility] Medical History Pulmonary hypertension Amyloidosis Left knee pain Fracture of radial head, left, closed Home Medications ?Medication ?Instructions ?Recorded ?Last Taken ?Type cholecalciferol (vitamin D3) 10 10 mcg PO DAILY 02/01/22 Unknown History mcg (400 unit) capsule multivitamin (Daily Multi-Vitamin 1 tab PO DAILY 02/01/22 Unknown History tablet) prazosin 1 mg capsule 1 mg PO QHS 02/01/22 Unknown History conjugated estrogens 0.625 mg/gram vaginal 04/06/24 Unknown History vaginal cream (Premarin) cranberry 500 mg capsule 500 mg PO BID 04/06/24 Unknown History fluticasone propionate 50 spray intranasal 04/06/24 Unknown History mcg/actuation nasal spray,suspension furosemide 40 mg tablet 40 mg PO QDAY 04/06/24 Unknown History sildenafil (pulm.hypertension) 20 40 mg PO TID 04/06/24 Unknown History mg tablet Allergy/AdvReac Type Severity Reaction Status Date / Time Sulfa (Sulfonamide Allergy Mild Hives Verified 11/04/24 09:22 Antibiotics) decongestants Allergy Mild Hives Uncoded 04/06/24 10:41 Social History Smoking Status: Former smoker ROS Constitutional Constitutional: Denies chills, fatigue, fever(s) or weakness Eyes Eyes: Denies change in vision Cardiovascular Cardiovascular: Reports dyspnea on exertion and edema; Denies chest pain, lightheadedness or palpitations Respiratory/Chest Respiratory/Chest: Reports shortness of breath with exertion; Denies cough, productive cough, shortness of breath at rest or wheezing Gastrointestinal Gastrointestinal: Denies abdominal pain Genitourinary Genitourinary: Denies dysuria Musculoskeletal Musculoskeletal: Denies arthralgias or myalgias Neurologic Neurologic: Denies dizziness, focal weakness or headache(s) Vital Signs Vital Signs Vital Signs: 11/04/24 09:13 11/04/24 09:23 11/04/24 09:30 Temperature 97.5 F L Temperature Source Oral Pulse Rate 71 Respiratory Rate 14 Respiratory Effort Normal Non-Labored Respiratory Pattern Normal Blood Pressure 135/60 H Blood Pressure Mean 85 Pulse Ox 96 Oxygen Delivery Method Room Air Room Air 11/04/24 10:12 11/04/24 11:00 11/04/24 12:00 Temperature Temperature Source Pulse Rate 58 L 60 52 L Respiratory Rate 16 20 H 16 Respiratory Effort Respiratory Pattern Blood Pressure 127/53 H 128/64 H 127/61 H Blood Pressure Mean 77 85 83 Pulse Ox 95 96 97 Oxygen Delivery Method Room Air Room Air 11/04/24 13:00 11/04/24 14:00 Temperature Temperature Source Pulse Rate 57 L 59 L Respiratory Rate 14 14 Respiratory Effort Respiratory Pattern Blood Pressure 124/63 H Blood Pressure Mean 83 Pulse Ox 95 95 Oxygen Delivery Method Room Air Room Air Weight Weight: 56.8 kg Body Mass Index (BMI) 20.8 Physical Exam Const alert, oriented x3, no apparent distress and average body habitus Constitutional Narrative: Pleasant elderly female, appears younger than stated age, mentally sharp, sitting up comfortably in bed, conversing normally, in no acute distress. General Appearance: cooperative and comfortable HEENT normocephalic, head/scalp atraumatic, hearing grossly normal bilaterally, nasal mucous membranes and turbinates normal and moist oral mucous membranes Eyes PERRL, EOMs intact bilaterally and conjunctivae normal Neck full ROM Chest inspection of chest normal Resp normal respiratory effort, normal air movement, no use of accessory muscles and clear to auscultation bilaterally Cardio regular rate, regular rhythm, no murmurs and peripheral pulses 2+ throughout GI normal to inspection, nondistended, normoactive bowel sounds, soft to palpation, non-tender and non-distended Back/Spine normal ROM Extremity Extremity Narrative: +4 lower extremity pitting edema noted up to just above the knees. Skin no rashes or lesions noted Neuro moves all extremities and no focal motor deficits Speech: speech normal Motor Exam: strength 5/5 throughout Psych mental status grossly normal Results Lab / Micro Data 11/04/24 09:26 11/04/24 09:26 Labs: Laboratory Results - last 24 hr 11/04/24 09:26: WBC 11.6 H, RBC 4.44, Hgb 13.3, Hct 38.8, MCV 87.4, MCH 30.0, MCHC 34.3, RDW Std Deviation 56.8 H, RDW Coeff of Jessy 18.1 H, Plt Count 367, MPV 10.8, Immature Gran % (Auto) 1.100 H, Neut % (Auto) 76.5 H, Lymph % (Auto) 11.7 L, [place] % (Auto) 9.0, Eos % (Auto) 1.4, Baso % (Auto) 0.3, Absolute Neuts (auto) 8.9 H, Absolute Lymphs (auto) 1.36, Nucleated RBC % 0, Sodium 131 L, Potassium 3.3, Chloride 97 L, Carbon Dioxide 22.9, Anion Gap 11, BUN 42 H, Creatinine 1.56 H, Estim Creat Clear Calc 22.78 L, Est GFR (MDRD) Non-Af 32 L, BUN/Creatinine Ratio 27.1 H, Glucose 139 H, Calcium 8.4, Troponin T High Sens 59 H*, NT pro BNP II 3334 H, TSH 5.980 H, Free T4 1.00, Free T3 pg/dL 1.2 L 11/04/24 11:25: Troponin T Hi Sens 2 Hr 51 H 11/04/24 13:43: Troponin T Hi Sens 4Hr 53 H Imaging Radiology Impression Chest X-Ray 11/04/24 10:00 IMPRESSION: No acute abnormality is seen. Reading Location: [facility] Chest CTA 11/04/24 10:45 IMPRESSION: No evidence of pulmonary embolism. Fullness in the subcarinal region suggestive of mild adenopathy. Reading Location: [facility] Assessment & Plan Assessment/Plan (1) CHF exacerbation: PLAN: Plan Patient is an 89-year-old female who presented to [facility] ED on 11/04/2024 with worsening shortness of breath with exertion. 1. 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 Admit under patient status to PCU. PT/OT/case management consulted. 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 In short, patient is scheduled to have bone marrow biopsy and whole-body PET scan done soon followed by initiation of chemotherapy. Lives at home alone and has had worsening functional status with weight loss recently. Hopeful that patient can go home possibly with home health care on discharge but appreciate therapy recommendations. Notably patient did have an elevated BNP as well but recent echo in August showed normal EF with no recent changes and patient on room air at rest with no volume overload on chest imaging; no need for repeat echo or treatment for heart failure at this time. Okay to continue home torsemide. 2. Elevated troponins with severe hyperlipidemia/hypertriglyceridemia ? Troponin trend 59 > 51 > 53 on admit. No ischemic EKG changes noted. Found to have severe hyperlipidemia/hypercholesterolemia in July and this was corroborated on 10/29. Lipid panel in 10/29 showed triglycerides 1183, total cholesterol 793, LDL 526, HDL 30. Unclear if this could be related to her amyloidosis as above. Given this finding and her shortness of breath with exertion, nuclear stress test ordered for further evaluation. 3. Elevated creatinine ? Creatinine 1.[address] Espinosa's note, most recent outpatient creatinine a few weeks ago was 1.3. Has had steadily worsening creatinine over the past few months presumably due to renal amyloidosis. Continue home torsemide as above. Follow-up a.m. BMP and monitor urine output. 4. Pulmonary hypertension ? Follows with Dr. Garcia. Stable on room air at rest. Continue home sildenafil and prazosin. 5. Vitamin D deficiency ? Vitamin D less than 6 on 10/29. Start vitamin D 50,000 units weekly. 6. Elevated TSH ? TSH high at 5.9, free T4 low normal 1.0, free T3 low at 1.2. Will hold on starting therapy for hypothyroidism for now, recommend close outpatient follow-up. DVT prophylaxis: Heparin subQ CODE STATUS: DNR CCA, DNI Expected disposition: Home, TBD Total clinical time spent by myself addressing the patient's medical issues, reviewing all the data, and collaborating with patient's care team: 75 minutes. Charges/Coding Visit Charges Inpatient E&M: 16024 Init Hosp L3
[2024-11-04] MEDS: Potassium Chloride Oral Soln 20 MEQ/15 ML UDC 40 MEQ PO (14:51)
[2024-11-04] MEDS: Bumetanide 1 MG/4 ML Vial IV (14:51)
--- NOTE | 2024-11-04 14:51 | CASEMGMT ---
Care Management Face to Face with patient for initial transition planning/care coordination assessment in the ED.? This blurb writer introduced self and role at [facility]. Patient alert and oriented. Patient willing to participate in assessment and is able to answer all questions appropriately.? Care providers, pharmacy, and demographics verified. Admitting Diagnosis: Other diagnosis history: pulmonary hypertension, amyloidosis, hypothyroidism PCP: ?[facility] Specialists: ??Mariiln Espinosa Preferred Pharmacy: [facility] Insurance: ?[employer] Prescription Benefit: Yes Living Will/HPOA: Patient states she has both completed, daughter is named as agent.? Will bring in when needed.? LNOK: ?Daughter Living Arrangements: ?Patient lives alone in a condo.?? Reports to being independent with ADLs and IADLs, does report to increased weakness since May.? States she used to walk a mile or two a day with her dog, has not been able to recently.? Transportation: ?Patient drives DME: ?[facility] HHC: ?patient denies, patients sister states she has used in the past. SNF/Rehab: ?none Community Resources: ?none Behavioral Health History: none Patient goals: Patient wishes to discharge home, denies need for home health care at this time. Patient denies any further needs or concerns at this time. Disposition Plan: admission to acute; RN CM/SW to follow for discharge planning needs that may arise. Laila Yoo, GROUP TESTER, IUSS ANALYST
[2024-11-04 15:32] LABS: Magnesium 2.1 mg/dL (1.5-2.2); Phosphorus 3.1 mg/dL (2.7-4.5)
[2024-11-04] MEDS: Sildenafil Citrate 20 MG TABLET 40 MG PO (22:03)
[2024-11-04] MEDS: Prazosin HCl 1 MG Capsule PO (22:03)
[2024-11-04] MEDS: Heparin Injection (Vial) 5,000 UNIT/ML VIAL 5000 UNIT SC (22:03)
[2024-11-04] MEDS: Atorvastatin Calcium 40 MG Tablet PO (22:03)
[2024-11-05 03:30] VITALS: BP 100/60; PULSE 69; RESP 16; TEMP 37; O2SAT 97
[2024-11-05 04:02] LABS: Hematocrit 35.2 % (37-47); Hemoglobin 12.3 g/dL (12.0-15.0); Mean Corp Hgb Conc 34.9 g/dL (32-36); Mean Corpuscular Hgb 29.9 pg (27.0-32.0); Mean Corpuscular Volume 85.4 fL (81-99); Mean Platelet Vol. 10.3 fl (6.2-12.0); POSITIVE MORPHOLOGY YES; Platelet Count 336 K/mm3 (150-450); RBC Distribution Width CV 18.5 % (11.6-14.6); RBC Distribution Width SD 56.8 fl (35.1-43.9); Red Blood Count 4.12 M/mm3 (4.2-5.4); White Blood Count 10.6 K/mm3 (4.4-11.0)
[2024-11-05 04:10] LABS: Scan Indicated on CBC? Y/N YES- FLAGS NOTED
[2024-11-05 04:20] VITALS: BMI 20.8
[2024-11-05 04:45] LABS: ALB/GLOB Ratio 0.8 RATIO (0.9-2.4); AST(SGOT) 37 U/L (<=31); Alanine Aminotransfer ALT/SGPT 26 U/L (<=34); Albumin, Serum 1.9 g/dL (3.4-4.8); Alkaline Phosphatase 246 U/L (35-104); Anion Gap 10 (5-15); BUN 40 mg/dL (4-19); BUN/Creat Ratio 26.5 RATIO (10-20); Calcium,Total 8.1 mg/dL (7.6-11.0); Carbon Dioxide 21.3 mmol/L (21.0-32.0); Chloride 102 mmol/L (98-108); EST Glomerular Filtration Rate 34 (>60); Estimated Creatinine Clearance 23.69 ml/min (50-250); Globulin 2.4 g/dL (2.2-4.2); Glucose 103 mg/dL (70-99); Potassium 3.4 mmol/L (3.3-5.1); Protein, Total 4.3 g/dL (5.9-8.4); Sodium Level 133 mmol/L (133-145); Total Bilirubin < 0.15 mg/dL (0.00-1.30)
--- NOTE | 2024-11-05 05:55 | EKG12_ITS ---
Test Reason : AM EKG Blood Pressure : */* mmHG Vent. Rate : 75 BPM Atrial Rate : 75 BPM P-R Int : 202 ms QRS Dur : 88 ms QT Int : 408 ms P-R-T Axes : 78 40 69 degrees QTcB Int : 455 ms Normal sinus rhythm Nonspecific ST abnormality Abnormal ECG When compared with ECG of 04-Nov-2024 09:17, MANUAL COMPARISON REQUIRED DATA IS UNCONFIRMED Confirmed by ASCENCION JONES, ALEX ([id number]), food editor KENYETTA MALDONADO ([id number]) on 11/06/2024 7:24:53 AM Referred By: Marcus Palomino Confirmed By: ALEX VEGAS MD
[2024-11-05 07:10] VITALS: O2SAT 95
[2024-11-05 08:11] VITALS: BP 111/59; PULSE 91; RESP 16; TEMP 36.7; O2SAT 97
[2024-11-05 11:25] VITALS: BP 123/74; PULSE 79; RESP 16; TEMP 37.1; O2SAT 97
--- NOTE | 2024-11-05 14:31 | CASEMGMT ---
Addendum entered by Pardeep Naqvi 11/05/24 15:38: Script for OP PT received from Dr Maurice and provided to pt, along w/[facility] rac card. She voices appreciation. Original Note: JAMIR HEALY NOTE: JAMIR HEALY to room to discuss discharge. Pt wishes to discharge home. Questions answered re: HHC and OP therapy. Pt states she is active, just not as active as she used to be, but she is not homebound. She states she has went to [facility] in the past and would be interested in going again. She declined wanting script faxed to them, stating she'll take care of it herself. She denies other discharge needs or concerns. Eldon ETIENNE RN, CM
[2024-11-05] MEDS: Sildenafil Citrate 20 MG TABLET 40 MG PO (15:20)
[2024-11-05] MEDS: Cholecalciferol (VIT D3) 25 MCG TABLET (1,000 UNITS) PO (15:20)
[2024-11-05] MEDS: Multivitamins,Therapeutic Tablet 1 TABLET PO (15:20)
[2024-11-05] MEDS: Ergocalciferol 1.25 MG (50, 000 UNIT) Capsule PO (15:43)
--- NOTE | 2024-11-05 16:33 | STRESSREP ---
Stress Test Report Pharmacologic myocardial perfusion stress test. 89-year-old lady with a history of chest pain Resting EKG demonstrates sinus rhythm with a rate of 67 bpm. Resting blood pressure is 102/56 mmHg. 0.4 mg of regadenoson was infused per usual protocol followed by rapid intravenous saline flush injection. Continuous EKG monitoring was performed. The maximum heart rate was 86 bpm which was 64 per of max impacted heart rate the maximum workload was 1 metabolic equivalent. At rest there were no ST or T wave changes noted to suggest ischemia and at peak infusion nonspecific ST changes were noted which did not meet the criteria for ischemia. No clinical angina is noted. The final blood pressure was 110/58 mmHg. Myocardial perfusion protocol. 11 mCi of technetium 99m sestamibi was injected at rest. 0.4 mg of regadenoson was infused per usual protocol. At peak infusion 33 mCi of technetium 99m sestamibi was injected stress images were obtained stress and rest images were reconstructed and compared in the short axis vertical long and horizontal long axis. Gated images were also obtained. Perfusion SPECT analysis: Review of the stress images demonstrate normal uptake of tracer noted in all areas of the myocardium. The resting images similar demonstrated normal uptake of tracer noted in all areas of the myocardium. No areas of reversibility are noted to suggest ischemia and no previous infarct is noted. Gated SPECT analysis: The gated ejection fraction is 80%. Conclusion: Normal pharmacologic myocardial perfusion stress test. Preserved ejection fraction.
--- NOTE | 2024-11-05 17:03 | PCM.DC ---
Discharge Instructions Diet Discharge Diet: Low fat / Low cholesterol DC O2, CPAP, BIPAP needs Home O2 Discharge instructions: No Dressing / Incision Discharge Activity: Return to Normal Activity Dressing / Incision Call your doctor if you observe: Fever of 101 or Higher, Shortness of breath, Dizziness, Fainting spells, Swelling in the ankles, Chest pain and Increased palpitations (irregular heartbeat) Follow Up Care Test Results: Test results from this visit will be discussed in further detail at your follow-up appointment, if applicable. Discharge Plan Admission Admit Date/Time: 11/04/24 14:45 Attending Provider: Temo Maurice Primary Care Provider: Donny Turpin [employer] Providers: Marcus Palomino Discharge Orders/Prescriptions Prescriptions: New atorvastatin 40 mg Tablet 40 mg PO QHS 30 Days Qty: 30 0RF Continued prazosin 1 mg capsule 1 mg PO QHS fluticasone propionate 50 mcg/actuation spray,suspension 2 spray intranasal BID Rx Instructions: one spray each nostril sildenafil (pulm.hypertension) 20 mg tablet 40 mg PO TID Premarin 0.625 mg/gram cream 0.625 mg vaginal .weekly magnesium 200 mg tablet 200 mg PO BID potassium chloride 20 mEq tablet,ER particles/crystals 20 meq PO BID torsemide 100 mg tablet 100 mg PO DAILY levothyroxine 25 mcg tablet 25 mcg PO DAILY Referrals / Follow Up: Donny Turpin Chi, MD [Primary Care Provider] - Within 1 Week Disposition Disposition (needs filled in before D/C Order can be placed): Home, Self Care
[2024-11-05 18:05] VITALS: BP 117/64; PULSE 94; RESP 98; TEMP 36.7; O2SAT 18
--- NOTE | 2024-11-05 18:14 | PCM.DC.SUM ---
Providers Date of Admission: 11/04/24 Primary Care Physician: Dr. Donny Turpin MD Reason For Visit: CHR EXACERBATION Diagnosis Discharge Diagnosis (1) CHF exacerbation: Status: Resolved Code(s): I50.9 - Heart failure, unspecified Medications at Discharge Home Medications prazosin 1 mg capsule 1 mg PO QHS blood pressure 02/01/22 conjugated estrogens 0.625 mg/gram vaginal cream (Premarin) 0.625 mg vaginal .weekly hormone 04/06/24 fluticasone propionate 50 mcg/actuation nasal spray,suspension 2 spray intranasal BID allergies 04/06/24 sildenafil (pulm.hypertension) 20 mg tablet 40 mg PO TID Pulmonary hypertension 04/06/24 atorvastatin 40 mg tablet 40 mg PO QHS 30 days #30 tabs 11/05/24 levothyroxine 25 mcg tablet 25 mcg PO DAILY thyroid 11/05/24 magnesium 200 mg tablet 200 mg PO BID supplement 11/05/24 potassium chloride 20 mEq tablet,extended release(part/cryst) 20 meq PO BID supplement 11/05/24 torsemide 100 mg tablet 100 mg PO DAILY water pill 11/05/24 Hospital Course Operations None Procedures Stress test Summary of Care Provided Minutes Spent on Discharge: 33 Hospital Course: Per HPI: DES DUFFY, is a 89 F who presented to [facility] ED on 11/04/2024 with worsening shortness of breath with exertion. 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 Read Dr. Espinosa's office note from 11/01 in [facility] that was very beneficial. In short, patient had known prior history of pulmonary hypertension and diastolic dysfunction that was confirmed on right heart cath in 2023; does not appear this was attributed to amyloidosis. Follows with Dr. Garcia and has been on sildenafil for this for some time. Per Dr. Espinosa, she was recently found to have 2 monoclonal antibodies and a potential third lambda light chain monoclonal antibody on recent workup for severe proteinuria. 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 Recent echo on 09/17 showed EF 60%, no change from previous echo back in 2022. Plan is for patient to have bone marrow biopsy done soon followed by treatment with daratumumab, bortezomib and cyclophosphamide. She is also scheduled to get a whole-body PET scan soon. She presented today with reported recent worsening of shortness of breath with exertion. However Dr. Espinosa notes that while patient lives independently at home, she has had rapidly progressive fatigue and weakness over the past several weeks. She does get hungry but due to metallic taste for about 4 to 6 weeks, she has not been eating much. Has had about a 15 pound weight loss since July. Has had significant swelling in her legs for the past 3 to 4 months. Was started on torsemide and this reportedly was helping somewhat. However, she has had significant shortness of breath with only limited exertion now recently as well. In the ED today patient was breathing comfortably on room air at rest. Does have +4 lower extremity pitting edema up to above the knees. BNP is elevated at 3334 but notably CTA chest is fairly benign with no pleural effusions noted. There was concern for heart failure/the patient so hospitalist was contacted for admission. I saw the patient at bedside in the ED. She was sitting up comfortably in bed, conversing normally and in no acute distress at rest. She denies any current pain or discomfort. Will be admitted for further management. Hospital Course: 1. 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 Here she is not requiring any oxygen and her biggest complaint is actually having metallic taste likely due to the midodrine that she is currently on. She had a stress test which was nonischemic and unremarkable and she requested to be discharged home. I discussed with her the plan for discharge and she expressed understanding of the risks and benefits of going home and would like to go home today. Her renal function is at baseline so there is no concern for resuming her home medications on discharge. I do recommend she follow-up with her PCP in 3 to 5 days to monitor her renal function on outpatient basis and she is to follow-up with oncology on to start treatment for her amyloid. 2. Pulmonary hypertension, vitamin D deficiency, hypothyroidism are chronic medical conditions which complicate her care. Her home medications were continued where appropriate Physical Exam Narrative General: Alert, Oriented x3, Cooperative, No apparent distress HEENT: Atraumatic, PERRLA, EOMI, Normocephalic Oral: Moist Mucosa Neck: Supple, No JVD Lungs: Diminished, Normal air movement, No rhonchi, No wheeze, No rales Cardiovascular: Regular rate, Regular Rhythm, Normal S1, Normal S2, No murmurs Abdomen: Soft, Non Tender, Non-Distended, No Hepato-splenomegaly Extremities: Edema, Capillary Refill Less than 3 Seconds Skin: No rashes, No breakdown Musculoskeletal: No Tenderness to Palpation of Joints or Extremities Neurological: No focal neurological deficits, Motor Exam 5/5 strength throughout, Sensory exam intact to light touch and pain Psych/Mental Status: Normal Affect, Appropriate Weight / BMI Weight Weight: 125 lb 3.561 oz Body Mass Index (BMI) 20.8 ABG / Lab / Microbiology Data 11/05/24 03:48 11/05/24 03:48 Laboratory: Laboratory Results - last 24 hr 11/05/24 03:48: WBC 10.6, RBC 4.12 L, Hgb 12.3, Hct 35.2 L, MCV 85.4, MCH 29.9, MCHC 34.9, RDW Std Deviation 56.8 H, RDW Coeff of Jessy 18.5 H, Plt Count 336, MPV 10.3, Sodium 133, Potassium 3.4, Chloride 102, Carbon Dioxide 21.3, Anion Gap 10, BUN 40 H, Creatinine 1.50 H, Estim Creat Clear Calc 23.69 L, Est GFR (MDRD) Non-Af 34 L, BUN/Creatinine Ratio 26.5 H, Glucose 103 H, Calcium 8.1, Total Bilirubin < 0.15, AST 37 H, ALT 26, Alkaline Phosphatase 246 H, Total Protein 4.3 L, Albumin 1.9 L, Globulin 2.4, Albumin/Globulin Ratio 0.8 L D/C Instructions Discharge Diet: Low fat / Low cholesterol Call your doctor if you observe: Fever of 101 or Higher, Shortness of breath, Dizziness, Fainting spells, Swelling in the ankles, Chest pain and Increased palpitations (irregular heartbeat) DC O2, CPAP, BIPAP Needs Home O2 Discharge instructions: No Meaningful Use Info Meaningful Use Meaningful Use Diagnoses (Choose all that apply): None applicable Ischemic Stroke Statin Dosing Therapy Reference: STATIN DOSE THERAPY REFERENCE: * Patients > 75 years receive moderate or high dose statin therapy. * Patients 75 years or YOUNGER should receive HIGH intensity statin dose unless contraindicated. You will be required to document reason for non-treatment if statin daily dose does not meet guidelines. HIGH DOSE STATIN THERAPY DAILY Atorvastatin > than or = to 40 mg Rosuvastatin > than or = to 20 mg Amlodipine + Atorvastatin > than or = to 2.5/40 mg Ezetimibe + Simvastatin 10/80 mg Simvastatin 80mg Discharge Plan Admission Admit Date/Time: 11/04/24 14:45 Attending Provider: Temo Maurice Primary Care Provider: Donny Turpin [employer] Providers: Marcus Palomino Discharge Orders/Prescriptions Prescriptions: New atorvastatin 40 mg Tablet 40 mg PO QHS 30 Days Qty: 30 0RF Continued prazosin 1 mg capsule 1 mg PO QHS fluticasone propionate 50 mcg/actuation spray,suspension 2 spray intranasal BID Rx Instructions: one spray each nostril sildenafil (pulm.hypertension) 20 mg tablet 40 mg PO TID Premarin 0.625 mg/gram cream 0.625 mg vaginal .weekly magnesium 200 mg tablet 200 mg PO BID potassium chloride 20 mEq tablet,ER particles/crystals 20 meq PO BID torsemide 100 mg tablet 100 mg PO DAILY levothyroxine 25 mcg tablet 25 mcg PO DAILY Referrals / Follow Up: Donny Turpin Chi, MD [Primary Care Provider] - Within 1 Week Disposition Disposition (needs filled in before D/C Order can be placed): Home, Self Care Charges/Coding Visit Charges Inpatient E&M: 25315 Disch Hosp >30min
== END 2024-11-05 19:15 | disposition home or self-care (01) ==
LOC: ED 14:49 → PCU 11-05 07:06
PROVIDERS: Admitting Provider Hospitalist; Emergency Provider Emergency Medicine; PCP Family Medicine Geriatric Medicine; Referring Provider Hospitalist; Visit Provider Family Medicine
DX: I50.33 Acute on chronic diastolic (congestive) heart failure (principal); E85.4 Organ-limited amyloidosis; I27.20 Pulmonary hypertension, unspecified; Z66 Do not resuscitate; E03.9 Hypothyroidism, unspecified; E55.9 Vitamin D deficiency, unspecified; E78.1 Pure hyperglyceridemia; Z87.891 Personal history of nicotine dependence; N29 Other disorders of kidney and ureter in diseases classified elsewhere; R79.89 Other specified abnormal findings of blood chemistry; Z79.899 Other long term (current) drug therapy; Z79.02 Long term (current) use of antithrombotics/antiplatelets; Z79.890 Hormone replacement therapy; R94.31 Abnormal electrocardiogram [ECG] [EKG]
CPT/HCPCS: 36415; 71046; 71275; 78452; 80048; 80053; 83735; 83880; 84100; 84439; 84443; 84481; 84484; 85025; 85027; 93005; 93017; 96372; 96374; 97161; 97165; 99221; 99285; A9500; Q9967; A4216; G0378; J2785